=== PATIENT | male | born 1940 | race Caucasian/White ===

== ENCOUNTER 2018-03-05 11:18 | Outpatient (CLI) | payer MEDICARE, OTHER ==
[2018-03-05 18:50] LABS: BASOPHILS % (AUTO) 0.4 %; EOSINOPHILS # (AUTO) 0.1 10^3/uL (0.0-0.7); EOSINOPHILS % (AUTO) 1.9 %; HGB - HEMOGLOBIN 13.9 g/dL (14.0-18.0); LYMPHOCYTES # (AUTO) 0.9 10^3/uL (1.5-3.5); LYMPHOCYTES % (AUTO) 20.6 %; MEAN CORPUSCULAR HEMOGLOBIN 29.7 pg (27.0-31.0); MEAN CORPUSCULAR HGB CONC 33.1 g/dL (32.0-36.0); MEAN CORPUSCULAR VOLUME 89.9 fL (80.0-94.0); MEAN PLATELET VOLUME 8.8 fL (7.4-11.4); MONOCYTES # (AUTO) 0.3 10^3/uL (0.0-1.0); NEUTROPHILS # (AUTO) 3.1 10^3/uL (1.5-6.6); NEUTROPHILS % (AUTO) 71.1 %; PLT - PLATELET COUNT 142 10^3/uL (130-450); RED BLOOD COUNT 4.68 10^6/uL (4.70-6.10); WHITE BLOOD COUNT 4.4 x10^3/uL (4.8-10.8)
[2018-03-05 19:22] LABS: ALBUMIN 4.7 g/dL (3.2-5.5); ALBUMIN/GLOBULIN RATIO 1.9 (1.0-2.2); ALKALINE PHOSPHATASE 39 IU/L (42-121); ALT ALANINE AMINOTRANSFERASE 23 IU/L (10-60); AST ASPARTATE AMINOTRANSFERASE 21 IU/L (10-42); BILIRUBIN,TOTAL 0.7 mg/dL (0.2-1.0); BUN - BLOOD UREA NITROGEN 18 mg/dL (6-20); CALCIUM 8.7 mg/dL (8.5-10.3); CARBON DIOXIDE - CO2 24 mmol/L (21-32); CHLORIDE 106 mmol/L (101-111); CHOL/HDL RATIO 6.4 (<5.0); CHOLESTEROL 249 mg/dL; CREATININE 1.1 mg/dL (0.6-1.2); GFR - MDRD 65 (>89); GLUCOSE 86 mg/dL (70-100); HDL CHOLESTEROL 39 mg/dL; LDL CHOLESTEROL,CALCULATED 173 mg/dL; LDL/HDL RATIO 4.4 (<3.6); SODIUM 137 mmol/L (135-145); TOTAL PROTEIN 7.2 g/dL (6.7-8.2); VLDL CHOLESTEROL 37 mg/dL
[2018-03-05 19:32] LABS: THYROID STIMULATING HORMONE 1.51 uIU/mL (0.34-5.60)
[2018-03-05 19:42] LABS: FOLATE 14.77 ng/mL (5.90 - >24.8)
[2018-03-08 22:48] LABS: METHYLMALONIC ACID 123 nmol/L (87-318)
== END 2018-03-05 11:19 | disposition home or self-care (01) ==
LOC: LAB.WCP 11:18
PROVIDERS: ATTEND Family Medicine
DX: I10 Essential (primary) hypertension (principal); E78.9 Disorder of lipoprotein metabolism, unspecified; Z85.46 Personal history of malignant neoplasm of prostate; R53.83 Other fatigue; F10.10 Alcohol abuse, uncomplicated; R26.89 Other abnormalities of gait and mobility; R41.89 Other symptoms and signs involving cognitive functions and awareness
CPT/HCPCS: 36415; 80053; 80061; 81599; 82607; 82746; 83721; 83921; 84153; 84425; 84443; 85025; 86592

== ENCOUNTER 2018-08-30 07:13 | Outpatient (CLI) | payer MEDICARE, OTHER ==
[2018-08-30 12:34] LABS: ALBUMIN 4.4 g/dL (3.2-5.5); ALBUMIN/GLOBULIN RATIO 1.8 (1.0-2.2); ALKALINE PHOSPHATASE 40 IU/L (42-121); ALT ALANINE AMINOTRANSFERASE 25 IU/L (10-60); AST ASPARTATE AMINOTRANSFERASE 21 IU/L (10-42); BILIRUBIN,TOTAL 0.6 mg/dL (0.2-1.0); BUN - BLOOD UREA NITROGEN 17 mg/dL (6-20); CALCIUM 8.8 mg/dL (8.5-10.3); CARBON DIOXIDE - CO2 29 mmol/L (21-32); CHLORIDE 104 mmol/L (101-111); CHOL/HDL RATIO 3.2 (<5.0); CHOLESTEROL 142 mg/dL; CREATININE 1.1 mg/dL (0.6-1.2); GFR - MDRD 65 (>89); GLUCOSE 97 mg/dL (70-100); HDL CHOLESTEROL 44 mg/dL; LDL CHOLESTEROL,CALCULATED 71 mg/dL; LDL/HDL RATIO 1.6 (<3.6); SODIUM 139 mmol/L (135-145); TOTAL PROTEIN 6.9 g/dL (6.7-8.2); VLDL CHOLESTEROL 27 mg/dL
== END 2018-08-30 07:14 | disposition home or self-care (01) ==
LOC: LAB.WCP 07:13
PROVIDERS: ATTEND Family Medicine
DX: E78.5 Hyperlipidemia, unspecified (principal)
CPT/HCPCS: 36415; 80053; 80061; 83721

== ENCOUNTER 2018-09-26 12:02 | Emergency (ER) | payer MEDICARE, OTHER ==
--- NOTE | 2018-09-26 13:09 | XRAY Report ---
Reason: fall/pain swelling/bruising Procedure Date: 09/26/2018 Accession Number: [id number] / [id number] Procedure: XR - Hand 3 View RT CPT Code: FULL RESULT: EXAM: RIGHT HAND RADIOGRAPHY EXAM DATE: 09/26/2018 12:50 PM. CLINICAL HISTORY: Fall/pain swelling/bruising. COMPARISON: None. TECHNIQUE: 3 views. FINDINGS: Bones: Acute oblique fracture through the mid to distal shaft of the right fifth metacarpal with mild impaction and dorsal displacement. No other fracture or focal bone lesion is identified. Joints: There is mild joint space narrowing at the first interphalangeal and second through fifth distal and proximal interphalangeal joints consistent with osteoarthritis. Moderate osteoarthritis of the first carpometacarpal joint and the radiocarpal joint. Soft Tissues: Mild soft tissue swelling over the hypo-thenar eminence. IMPRESSION: 1. Oblique fracture through the mid to distal shaft of the right fifth metacarpal with mild impaction and dorsal displacement. 2. Mild to moderate polyarticular osteoarthritis. RADIA
--- NOTE | 2018-09-26 13:33 | ED Physician Documentation ---
PD HPI UPPER EXT INJURY - Stated complaint Stated Complaint: GLF/RT HAND INJ - Chief complaint Chief Complaint: Ext Problem - History obtained from History obtained from: Patient - History of Present Illness Location: Right, Hand Type of injury: Fall (he says he slipped and fell, bracing fall with hands, and struck right hand on dresser, with pain at ulnar side.) Where injury occurred: Home Timing - onset: Last night Timing - details: Abrupt onset, Still present Improved by: Rest Worsened by: Moving, Palpating Associated symptoms: Swelling, Discolored (bruising). No: Weakness, Numbness Contributing factors: No: Anticoagulated Similar symptoms before: Has not had sx before Recently seen: Not recently seen Review of Systems Musculoskeletal: denies: Neck pain, Back pain Neurologic: denies: Focal weakness, Numbness, Headache, Head injury PD PAST MEDICAL HISTORY - Past Medical History Cardiovascular: Hypertension Respiratory: None Endocrine/Autoimmune: None GI: GERD, Ulcers, Colon polyps HEENT: None Psych: Depression, Anxiety Musculoskeletal: None Derm: None - Past Surgical History Past Surgical History: Yes General: Colonoscopy Ortho: Other HEENT: Tonsil/Adenoidectomy - Present Medications Home Medications: Ambulatory Orders Medication Instructions Recorded Confirmed Bupropion HCl [Wellbutrin Sr] 150 mg PO BID 11/07/13 04/27/14 Lisinopril 10 mg PO DAILY 11/07/13 04/27/14 Sertraline HCl [Zoloft] 200 mg PO DAILY 11/07/13 04/27/14 - Allergies Allergies/Adverse Reactions: Allergies Allergy/AdvReac Type Severity Reaction Status Date / Time No Known Drug Allergies Allergy Verified 09/26/18 12:25 - Social History Does the pt smoke?: No Smoking Status: Never smoker Does the pt drink ETOH?: Yes Does the pt have substance abuse?: No - Immunizations Immunizations are current?: No PD ED PE NORMAL - Vitals Vital signs reviewed: Yes - General General: Alert and oriented X 3, No acute distress, Well developed/nourished - Derm Derm: Normal color, Warm and dry - Extremities Extremities: Other (right hand with bruising/swelling and tenderness over 5th MC area. Able to flex and extend little finger without malrotation, but causes hand pain. ) - Neuro Neuro: Alert and oriented X 3, No motor deficit, No sensory deficit Results - Vitals Vitals: Vital Signs - 24 hr 09/26/18 09/26/18 12:23 14:34 Temperature 36.3 C L Heart Rate 77 77 Respiratory 14 16 Rate Blood Pressure 121/64 120/62 O2 Saturation 98 98 Oxygen O2 Source Room air - Rads (name of study) right hand Radiology: Prelim report reviewed (oblique 5th MC shaft fracture, nonangulated. ), EMP read contemporaneously Procedures - Splint (location) right hand Splint applied by: Tech Type of splint: Fiberglass, Ulnar gutter Other: Patient tolerated well, No complications, Neurovascular intact, Sling provided PD MEDICAL DECISION MAKING - ED course Complexity details: reviewed results, considered differential, d/w patient Departure - Departure Disposition: 01 Home, Self Care Clinical Impression: Accidental fall Qualifiers: Encounter type: initial encounter Qualified Code(s): W19.XXXA - Unspecified fall, initial encounter Fracture of fifth metacarpal bone of right hand Qualifiers: Encounter type: initial encounter Fracture type: closed Metacarpal location: shaft Fracture alignment: nondisplaced Qualified Code(s): S62.356A - Nond isplaced fracture of shaft of fifth metacarpal bone, right hand, initial encounter for closed fracture Condition: Stable Record reviewed to determine appropriate education?: Yes Instructions: ED Fx Hand Closed Follow-Up: Zahra King DO [Primary Care Provider] - [facility] [Provider [facility]] Comments: Keep the splint on to protect the broken hand. He will need to be splinted for 4-6 weeks. Follow-up with orthopedics in about a week for retaining the splint as it will likely be poorly fitting once the swelling goes down. Rest ice and elevate it often. Use the sling when up and around for the next several days to reduce swelling. Continue the ibuprofen for pain. Add Tylenol if needed. Discharge Date/Time: 09/26/18 14:34
[2018-09-26 14:36] VITALS: BP 120/62
== END 2018-09-26 14:34 | disposition home or self-care (01) ==
LOC: ED 12:02
DX: S62.356A Nondisplaced fracture of shaft of fifth metacarpal bone, right hand, initial encounter for closed fracture (principal); W01.0XXA Fall on same level from slipping, tripping and stumbling without subsequent striking against object, initial encounter; Y92.009 Unspecified place in unspecified non-institutional (private) residence as the place of occurrence of the external cause
CPT/HCPCS: 29125; 99283

== ENCOUNTER 2018-10-02 05:56 | Emergency (ER) | payer MEDICARE, OTHER ==
[2018-10-02 06:05] VITALS: BP 120/69
--- NOTE | 2018-10-02 06:10 | ED Physician Documentation ---
History of Present Illness - Stated complaint Stated Complaint: R ARM PX - Chief complaint Chief Complaint: Ext Problem - History obtained from History obtained from: Patient - History of Present Illness Timing: Today - Additonal information Additional information: T+R 09/26 for right hand fracture (5th metacarpal). this morning, the declan wrap came undone and he wasn't sure how to address this. Review of Systems Musculoskeletal: reports: Extremity pain (has been steadily improving since injury), Extremity swelling (has been steadily improving since injury) PD PAST MEDICAL HISTORY - Past Medical History Past Medical History: Yes Cardiovascular: Hypertension Respiratory: None Neuro: None Endocrine/Autoimmune: None GI: GERD, Ulcers, Colon polyps HEENT: None Psych: Depression, Anxiety Musculoskeletal: None Derm: None - Past Surgical History Past Surgical History: Yes General: Colonoscopy Ortho: Other HEENT: Tonsil/Adenoidectomy - Present Medications Home Medications: Ambulatory Orders Medication Instructions Recorded Confirmed Bupropion HCl [Wellbutrin Sr] 150 mg PO BID 11/07/13 04/27/14 Lisinopril 10 mg PO DAILY 11/07/13 04/27/14 Sertraline HCl [Zoloft] 200 mg PO DAILY 11/07/13 04/27/14 - Allergies Allergies/Adverse Reactions: Allergies Allergy/AdvReac Type Severity Reaction Status Date / Time No Known Drug Allergies Allergy Verified 10/02/18 06:05 - Social History Does the pt smoke?: No Smoking Status: Never smoker Does the pt drink ETOH?: Yes Does the pt have substance abuse?: No - Immunizations Immunizations are current?: No - POLST Patient has POLST: No PD ED PE NORMAL - Vitals Vital signs reviewed: Yes - General General: Alert and oriented X 3, No acute distress, Well developed/nourished - Neuro Neuro: No sensory deficit (LTS intact right hand (fingertips)) PD ED PE EXPANDED - Extremities Extremities: Swelling (right hand/fingers), Bruising (right hand, lateral aspect), Vascular intact (brisk capillary refill right fingertips), Other (splint in place right FA/wrist/hand despite loose declan wrap) Results - Vitals Vitals: Vital Signs - 24 hr 10/02/18 06:03 Temperature 35.8 C L Heart Rate 63 Respiratory 17 Rate Blood Pressure 120/69 O2 Saturation 96 Oxygen O2 Source Room air PD MEDICAL DECISION MAKING - ED course Complexity details: considered differential, d/w patient ED course: patient did not know how to address the loose declan wrap; he says he didn't even realize it was an declan wrap and was worried it was part of the splint. RN rewrapped the splint with the declan wrap. patient has no other c/o and has f/u arranged with PMD early this coming week. Departure - Departure Disposition: 01 Home, Self Care Clinical Impression: Fracture of fifth metacarpal bone of right hand Qualifiers: Encounter type: subsequent encounter Fracture type: closed Metacarpal location: base Fracture alignment: nondisplaced Fracture healing: with routine healing Qualified Code(s): S62.346D - Nondisplaced fracture of base of fifth metacarpal bone, right hand, subsequent encounter for fracture with routine healing Condition: Good Instructions: ED Bandage Elastic Wrap, ED Splint Care Fiberglass Discharge Date/Time: 10/02/18 06:18
== END 2018-10-02 06:18 | disposition home or self-care (01) ==
LOC: ED 05:56
DX: S62.346D Nondisplaced fracture of base of fifth metacarpal bone, right hand, subsequent encounter for fracture with routine healing (principal); X58.XXXD Exposure to other specified factors, subsequent encounter; I10 Essential (primary) hypertension
CPT/HCPCS: 99282

== ENCOUNTER 2018-10-21 11:08 | Outpatient (CLI) | payer MEDICARE, OTHER ==
--- NOTE | 2018-10-21 14:02 | XRAY Report ---
Reason: NONDISPLACED FRACTURE OF NECK OF FIFTH METACARPAL BONE, RIGHTHAND Procedure Date: 10/21/2018 Accession Number: [id number] / [id number] Procedure: XR - Hand 3 View RT CPT Code: FULL RESULT: EXAM: RIGHT HAND RADIOGRAPHY EXAM DATE: 10/21/2018 11:41 AM. CLINICAL HISTORY: Nondisplaced fracture of neck of fifth metacarpal bone, right hand. COMPARISON: HAND 3 VIEW RT 09/26/2018 12:44 PM. TECHNIQUE: 3 views. FINDINGS: Bones: The fifth metacarpal fracture is again seen and without bony callus formation or osseous bridging, not as yet healed. Alignment is similar to prior. Joints: Advanced degenerative changes of the first carpometacarpal joint and joint space narrowing in the interphalangeal joints, distribution suggestive of osteoarthrosis. Soft Tissues: Normal. No soft tissue swelling. IMPRESSION: Persistent fracture of the fifth metacarpal without osseous bridging as yet. RADIA
== END 2018-10-21 11:09 | disposition home or self-care (01) ==
LOC: DI 11:08
PROVIDERS: ATTEND Family Medicine
DX: S62.366S Nondisplaced fracture of neck of fifth metacarpal bone, right hand, sequela (principal)

== ENCOUNTER 2019-05-02 11:29 | Outpatient (CLI) | payer MEDICARE, OTHER ==
--- NOTE | 2019-05-02 12:11 | XRAY Report ---
Reason: LOW BACK PAIN,ACUTE Procedure Date: 05/02/2019 Accession Number: [id number] / [id number] Procedure: WCP - Lumbar Spine 2 View CPT Code: FULL RESULT: EXAM: LUMBOSACRAL SPINE RADIOGRAPHY EXAM DATE: 05/02/2019 11:43 AM. CLINICAL HISTORY: Low back pain, acute. COMPARISONS: None. TECHNIQUE: 2 views. FINDINGS: Alignment: Normal. No spondylolisthesis or scoliosis. Bones: Five sph-rzn-[id number] lumbar vertebral bodies are present. No fractures or bone lesions. Disks: Disk space heights are mostly preserved except at L1-L2 where there is mild marginal osteophytosis and moderate loss of height. Facets: There is mild facet arthropathy, mostly of the lower lumbar spine. Grading is limited by motion artifact on the lateral view. Sacroiliac Joints: Unremarkable. Soft Tissues: The aorta is partially calcified. IMPRESSION: Overall mild degenerative changes. RADIA
== END 2019-05-02 11:30 | disposition home or self-care (01) ==
LOC: DI.WCP 11:29
PROVIDERS: ATTEND Family Medicine
DX: M51.36 Other intervertebral disc degeneration, lumbar region (principal); M47.816 Spondylosis without myelopathy or radiculopathy, lumbar region; M16.11 Unilateral primary osteoarthritis, right hip
CPT/HCPCS: 72100

== ENCOUNTER 2019-05-02 11:30 | Outpatient (CLI) | payer MEDICARE, OTHER ==
--- NOTE | 2019-05-02 12:11 | XRAY Report ---
Reason: HIP PAIN,RIGHT Procedure Date: 05/02/2019 Accession Number: [id number] / [id number] Procedure: WCP - Hip w/Pelvis 2-3V RT CPT Code: FULL RESULT: EXAM: RIGHT HIP RADIOGRAPHY EXAM DATE: 05/02/2019 11:43 AM. CLINICAL HISTORY: Hip pain, right. COMPARISON: None. TECHNIQUE: 2 views. FINDINGS: Bones: No fracture is detected. Joints: The right hip demonstrates joint space loss with subchondral sclerosis and osteophyte formation. Similar but more pronounced changes are seen in the visualized left hip. No dislocation. Soft Tissues: Surgical clips as well as what is likely a surgical mesh is seen projecting over the pelvis. IMPRESSION: Degenerative changes. RADIA
== END 2019-05-02 11:31 | disposition home or self-care (01) ==
LOC: DI.WCP 11:30
PROVIDERS: ATTEND Family Medicine
DX: M16.11 Unilateral primary osteoarthritis, right hip (principal)

== ENCOUNTER 2019-06-29 23:29 | Outpatient (CLI) | payer MEDICARE, OTHER | END 2019-06-29 23:30 | disposition critical access hospital (66) | LOC: EMS 23:29 | PROVIDERS: ATTEND Surgery | DX: M79.605 Pain in left leg (principal); W01.0XXA Fall on same level from slipping, tripping and stumbling without subsequent striking against object, initial encounter; Y92.007 Garden or yard of unspecified non-institutional (private) residence as the place of occurrence of the external cause | CPT/HCPCS: A0425; A0429 ==

== ENCOUNTER 2019-06-29 23:47 | Observation (INO) | payer MEDICARE, OTHER ==
[2019-06-30] MEDS ORDERED: oxyCODONE 5 MG TABLET PO STA (00:13)
[2019-06-30] MEDS ORDERED: ACETAMINOPHEN 325 MG TABLET PO STA (00:13)
--- NOTE | 2019-06-30 00:14 | ED Physician Documentation ---
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 He was outside today and his dog ran into him, causing him to fall backwards and landed on grass. He had immediate pain just inferior to his left knee associate with some swelling. He was unable to bear weight so he called EMS who brought him here by ambulance. He denies history of issues with this knee in the past. He did not hit his head or neck, did not lose consciousness, denies pain or trauma elsewhere. Review of Systems Constitutional: denies: Fever Cardiac: denies: Chest pain / pressure Respiratory: denies: Dyspnea GI: denies: Abdominal Pain Skin: reports: Other (+ for bruising over left knee) Musculoskeletal: reports: Joint pain PD PAST MEDICAL HISTORY - Past Medical History Past Medical History: Yes Cardiovascular: Hypertension Respiratory: None Neuro: None Endocrine/Autoimmune: None GI: GERD, Ulcers, Colon polyps HEENT: None Psych: Depression, Anxiety Musculoskeletal: None Derm: None - Past Surgical History Past Surgical History: Yes General: Colonoscopy Ortho: Other HEENT: Tonsil/Adenoidectomy - Present Medications Home Medications: Ambulatory Orders Medication Instructions Recorded Confirmed Sertraline HCl [Zoloft] 200 mg PO DAILY 11/07/13 06/29/19 - Allergies Allergies/Adverse Reactions: Allergies Allergy/AdvReac Type Severity Reaction Status Date / Time No Known Drug Allergies Allergy Verified 06/29/19 23:50 - Social History Does the pt smoke?: No Smoking Status: Never smoker Does the pt drink ETOH?: No Does the pt have substance abuse?: No - Immunizations Immunizations are current?: No - POLST Patient has POLST: No PD ED PE NORMAL - Vitals Vital signs reviewed: Yes - General General: Alert and oriented X 3, No acute distress - HEENT HEENT: Atraumatic - Cardiac Cardiac: RRR, No murmur - Respiratory Respiratory: No respiratory distress, Clear bilaterally - Abdomen Abdomen: Non tender, Non distended - Derm Derm: Warm and dry - Extremities Extremities: Other (There is edema and ecchymosis over the left inferior lateral aspect of the knee. Patient is unable to bend his knee without severe pain. There is no tenderness of the patella or the distal femur. The lower leg below the level of mid hernandez appears atraumatic and is nontender to palpation. He is able to dorsiflex and plantarflex his ankle, wiggle his toes. Capillary refill is brisk of all digits, and sensation is intact light touch over the entire foot) - Neuro Neuro: Alert and oriented X 3 - Psych Psych: Normal mood, Normal affect Results - Vitals Vitals: Vital Signs - 24 hr 06/29/19 06/30/19 23:47 01:55 Temperature 37.0 C Heart Rate 72 64 Respiratory 14 15 Rate Blood Pressure 120/89 H 123/78 O2 Saturation 97 97 Oxygen O2 Source Room air - Rads (name of study) CT knee Radiology: Prelim report reviewed (Minimally displaced fracture of the left lateral tibial plateau) PD MEDICAL DECISION MAKING - ED course Complexity details: considered differential (Ligamentous injury, fracture, sprain, strain, dislocation, Contusion) ED course: Patient presenting with pain of his left knee after a fall, he is significant tenderness and inability to bear weight on the knee. X-ray was obtained which shows a potential tibial plateau fracture, to better evaluate this is CT was ordered. Patient was given Tylenol as well as oxycodone for pain control. CT revealed a minimally displaced lateral left tibial plateau fracture. After speaking to our orthopedist Dr. Murcia and discussing the case, patient was placed into a knee immobilizer and was given crutches, he is unable to ambulate safely because he already has poor mobility and pain in his right hip. He lives alone and does not have anyone who is able to help him at home. Patient was admitted to observation for physical therapy evaluation, pain control, and safe discharge planning Departure - Departure Disposition: ED Place in Observation Clinical Impression: Tibial plateau fracture, left Qualifiers: Encounter type: initial encounter Fracture type: closed Qualified Code(s): S82.142A - Displaced bicondylar fracture of left tibia, initial encounter for closed fracture Discharge Date/Time: 06/30/19 04:21
--- NOTE | 2019-06-30 00:54 | XRAY Report ---
Reason: left knee pain and swelling after fall Procedure Date: 06/30/2019 Accession Number: [id number] / [id number] Procedure: XR - Knee 3 View LT CPT Code: FULL RESULT: EXAM: LEFT KNEE RADIOGRAPHY EXAM DATE: 06/30/2019 12:31 AM CLINICAL HISTORY: Left knee pain and swelling after a fall. COMPARISON: None. TECHNIQUE: 3 views. FINDINGS: Bones: There is a subtle lucency traversing the lateral portion of the proximal tibia. Joints: There is a small knee effusion. There is mild tricompartmental degenerative joint disease. Soft Tissues: No significant soft tissue swelling. IMPRESSION: Artifact versus a subtle lateral tibial plateau fracture. No significant depression demonstrated. There is a small knee effusion. Further assessment could be considered with a CT of the knee. RADIA
--- NOTE | 2019-06-30 02:25 | CT Report ---
Reason: Knee, possible tibial plateau fracture Procedure Date: 06/30/2019 Accession Number: [id number] / [id number] Procedure: CT - LOWER EXTREMITY WO - LT CPT Code: FULL RESULT: EXAM: LEFT KNEE CT WITHOUT CONTRAST EXAM DATE: 06/30/2019 01:50 AM. CLINICAL HISTORY: Knee, possible tibial plateau fracture. COMPARISON: KNEE 3 VIEW LT 06/30/2019 12:19 AM. TECHNIQUE: Thin-section axial images were acquired of the knee without contrast. Post-processing: Coronal and sagittal reformats. Other: None. In accordance with CT protocol optimization, one or more of the following dose reduction techniques were utilized for this exam: automated exposure control, adjustment of mA and/or KV based on patient size, or use of iterative reconstructive technique. FINDINGS: Bones: Comminuted, minimally displaced lateral tibial plateau fracture, vertically oriented. Tiny avulsion fracture fragment from the medial femoral condyle, possibly associated with a medial collateral ligament injury. Joints: Moderate osteoarthritis. Lipohemarthrosis. Musculature: Normal. No fatty atrophy. Other: Soft tissue swelling. Small left Whatley's cyst. IMPRESSION: Comminuted, minimally displaced lateral tibial plateau fracture. Tiny avulsion fragment from the medial femoral condyle, which may be associated with a medial collateral ligament injury. Lipohemarthrosis and osteoarthritis. RADIA
[2019-06-30] MEDS ORDERED: SODIUM CHLORIDE FLUSH 0.9% 10 ML SYRINGE IVP PRN (03:33)
--- NOTE | 2019-06-30 04:06 | HISTORY & PHYSICAL EXAMINATION ---
Chief Complaint - Chief Complaint Chief Complaint: left knee pain History of Present Illness - Admitted From Admitted From:: [facility] ED - History Obtained From Records Reviewed: yes History obtained from: patient - History of Present Illness HPI Comment/Other: Patient seen and examined on 06/29/19 at 03:45am Patient is a 79 y/o male who presented to the ED via EMS with left knee pain after his dog ran into his knee with significant force, causing him to topple over. He did not hit his head or black out. Work up in the ED included CT of the left knee which showed a tibial plateau fracture. Recommendation was for him to be non-weight bearing on the left leg using crutches. However he has been having problems with his right hip and recently required a steroid injection into the right hip joint. Consequently he is unstable on his feet and unable to ambulate. He denies any other complains. No chest pain, PRAFUL, abd pain, n/v/d, fever or chills. History - Past Medical History Cardiovascular: reports: Hypertension Respiratory: reports: None Neuro: reports: None Endocrine/Autoimmune: reports: None GI: reports: GERD, Ulcers, Colon polyps HEENT: reports: None Psych: reports: Depression, Anxiety Musculoskeletal: reports: None Derm: reports: None MRSA Hx?: No - Past Surgical History General: reports: Colonoscopy Ortho: reports: Other HEENT: reports: Tonsil/Adenoidectomy - Family & Social History Family History Comment/Other: Patient denies any significant family history Living arrangement: At home Living Situation: Alone Social History Notes: Patient lives alone. He denies any alcohol, tobacco or illicit drug use - POLST Patient has POLST: No Meds/Allgy - Home Medications Home Medications: Ambulatory Orders Medication Instructions Recorded Confirmed Sertraline HCl [Zoloft] 200 mg PO DAILY 11/07/13 06/29/19 - Allergies Allergies/Adverse Reactions: Allergies Allergy/AdvReac Type Severity Reaction Status Date / Time No Known Drug Allergies Allergy Verified 06/29/19 23:50 Review of Systems - Constitutional Constitutional: denies: Fatigue, Fever, Chills, Weakness - Eyes Eyes: denies: Blurred vision, Dipolpia - Ears, Nose & Throat Ears, Nose & Throat: reports: Hearing aids. denies: Nasal pain, Nasal discharge, Hoarseness - Cardiovascular Cariovascular: denies: Irregular heart rate, Palpitations, Chest pain, Edema, Lightheadedness, Syncope, Exertional dyspnea - Respiratory Respiratory: denies: Cough, Sputum production, Wheezing, SOB at rest, SOB with exertion - Gastrointestinal Gastrointestinal: denies: Abdominal pain, Abdominal distention, Nausea, Vomiting, Coffee grounds emesis - Genitourinary Genitourinary: denies: Dysuria, Frequency, Urgency, Hematuria - Musculoskeletal Musculoskeletal: reports: Joint pain (right hip and left knee). denies: Muscle pain, Back pain, Muscle aches - Integumentary Integumentary: denies: Rash, Pruritis, Lesions - Neurological Neurological: denies: General weakness, Focal weakness, Headache, Dizziness - Psychiatric Psychiatric: reports: Depression, Anxiety - Endocrine Endocrine: denies: Polyuria, Polydypsia - Hematologic/Lymphatic Hematologic/Lymphatic: denies: Anemia, Bruising, Petechiae Exam - Vital Signs Vital Signs: Vital Signs x48h Temp Pulse Resp BP Pulse Ox 06/30/19 01:55 64 15 123/78 97 06/29/19 23:47 37.0 C 72 14 120/89 H 97 - Physical Exam General Appearance: positive: Alert, Moderate distress Eyes Bilateral: positive: Normal inspection, PERRL, EOMI ENT: positive: ENT inspection nml, No signs of dehydration Neck: positive: Nml inspection, No JVD, Trachea midline Respiratory: positive: Chest non-tender, No respiratory distress. negative: Wheezes, Rales, Rhonchi Cardiovascular: positive: Regular rate & rhythm, No murmur Abdomen: positive: Non-tender, No organomegaly, Nml bowel sounds, No distention. negative: Guarding, Rebound Back: positive: Nml inspection Skin: positive: Color nml, No rash, Warm Extremities: positive: Other (left knee in a brace) Neurologic/Psychiatric: positive: Oriented x3, CN's nml (2-12) Conclusion/Plan - Problem List (1) Tibial plateau fracture, left Conclusion/Plan: Patient unable to bear weight on the right leg to due right hip pain As a result unsteady on leg thus unable to ambulate. PT/OT to evaluate and treat and give recommendations Pain management Qualifiers: Encounter type: initial encounter Fracture type: closed Qualified Code(s): S82.142A - Displaced bicondylar fracture of left tibia, initial encounter for closed fracture (2) Depression Conclusion/Plan: On zoloft Core Measures - Anticipated LOS I expect patient to be DC'd or transferred within 96 hours.: Yes - DVT/VTE - Prophylaxis VTE/DVT Device ordered at admit?: Yes
[2019-06-30] MEDS: ACETAMINOPHEN 325 MG TABLET PO PRN ×3 (04:43→14:10)
[2019-06-30] MEDS: oxyCODONE 5 MG TABLET PO PRN ×3 (04:47→14:09)
[2019-06-30 05:54] LABS: BASOPHILS % (AUTO) 0.2 %; EOSINOPHILS # (AUTO) 0.2 10^3/uL (0.0-0.7); EOSINOPHILS % (AUTO) 3.7 %; LYMPHOCYTES # (AUTO) 1.1 10^3/uL (1.5-3.5); LYMPHOCYTES % (AUTO) 17.9 %; MEAN CORPUSCULAR HEMOGLOBIN 29.4 pg (27.0-31.0); MEAN CORPUSCULAR HGB CONC 32.3 g/dL (32.0-36.0); MEAN CORPUSCULAR VOLUME 91.2 fL (80.0-94.0); MEAN PLATELET VOLUME 10.4 fL (7.4-11.4); MONOCYTES # (AUTO) 0.6 10^3/uL (0.0-1.0); MONOCYTES % (AUTO) 9.5 %; NEUTROPHILS # (AUTO) 4.2 10^3/uL (1.5-6.6); NEUTROPHILS % (AUTO) 68.4 %; PLT - PLATELET COUNT 129 10^3/uL (130-450); RED BLOOD COUNT 4.08 10^6/uL (4.70-6.10); RED CELL DISTRIBUTION WIDTH 12.7 % (12.0-15.0); WHITE BLOOD COUNT 6.2 x10^3/uL (4.8-10.8)
[2019-06-30 05:58] LABS: CALCIUM 8.5 mg/dL (8.5-10.3); CREATININE 0.8 mg/dL (0.6-1.2)
[2019-06-30] MEDS ORDERED: MORPHINE 2 MG/ML CARPUJECT IVP PRN (08:16)
[2019-06-30] MEDS ORDERED: POLYETHYLENE GLYCOL 3350 17 GM PACKET PO SCH (09:00)
[2019-06-30] MEDS ORDERED: SODIUM CHLORIDE FLUSH 0.9% 10 ML SYRINGE IVP SCH (09:00)
[2019-06-30] MEDS ORDERED: SERTRALINE 50 MG TABLET PO SCH (09:00)
[2019-06-30 13:13] VITALS: BP 124/74
--- NOTE | 2019-06-30 13:29 | Discharge Plan ---
Discharge Plan Problem Reviewed?: Yes Disposition: Home, Self Care Condition: Poor Prescriptions: oxyCODONE [Roxicodone] 5 mg PO Q4HR PRN #20 tablet PRN Reason: Pain 5 to 7 Diet: Regular Activity Restrictions: Activity as Tolerated Shower Restrictions: No (fall precaution) Instruction Topics: Oxycodone tablets or capsules, Fx Leg Arm, Falls Risks Prevent Health Concerns: fall, fracture Plan of Treatment: please followup the instructions for fall prevention, and orthopedics instruction for your injury care. please followup orthopedics as needed. oxycodon is prescribed for your pain control. Care Goals: stabilization of your medical conditions Assessment: assessment as the above Additional Instructions or Follow Up instructions: please followup your PCP in one week, and followup orthopedics as needed. Should your symptoms return or worsen, you may present ER, call 911 for help. Follow-Up Care: Outpatient Rehab - PT No Smoking: If you smoke, Please STOP! Call for help. Follow-up with: Zahra King DO [Provider Admit Priv/Credential] -
--- NOTE | 2019-06-30 13:32 | CONSULTATION NOTE ---
DATE OF SERVICE: 06/30/2019 Physician: Carlos Murcia MD REFERRING PHYSICIAN: Ermelinda Woodard MD CHIEF COMPLAINT: "My left knee hurts." HISTORY OF PRESENT ILLNESS: Patient is a 79-year-old male who apparently was knocked down by his 35-pound Whippet dog yesterday, falling backwards and injuring his left knee. He noted some mild swelling as well as pain to the knee. No gross deformity noted. It was too painful to weight bear on this left leg, however. He was taken to the emergency here at [facility], where x-rays and a CT scan revealed a minimally displaced intraarticular lateral tibial plateau fracture. The patient denies any prior fractures to his knee. No distal weakness or numbness noted in the lower extremity. No other injuries noted from his fall. EXAMINATION: Patient's left knee shows minimal swelling and some mild bruising around the knee. No effusion appreciated. Has some generalized tenderness around the knee, posteromedially and anterolaterally. Tenderness over the lateral proximal tibia noted. Knee range of motion showed about 20-30 degrees of easy motion at the knee. Ligaments appear to be stable on testing today. Neurovascularly intact distally. IMAGING: X-rays and CT scan taken previously reviewed; showed intraarticular split of the lateral tibial plateau, minimally depressed or displaced. ASSESSMENT: Closed, minimally depressed or displaced left lateral tibial plateau fracture. PLAN: Patient found that his knee immobilizer was not very helpful. He may replace this with an Sai wrap as tolerated. May work on early range of motion of the knee as tolerated. Will be able to have him see physical therapy for crutch ambulation or walker ambulation, nonweightbearing on the left side for the next 4-6 weeks. Analgesics as needed. Upon discharge from the hospital, he will follow up with the orthopedic clinic in about a week to 10 days for followup x-rays of his knee and a check on his clinical status. TD: 06/30/2019 13:32 [email or web address]
--- NOTE | 2019-06-30 13:41 | DISCHARGE SUMMARY ---
Discharge Summary Discharge Date: 06/30/19 Discharging Provider: NATHAN Primary Care Provider: Brittani Barrera Condition at Discharge: Poor Discharge Disposition: Home Health Service Discharge Facility Name: home - DIAGNOSES Admission Diagnoses: (1) Tibial plateau fracture, left (2) Depression Discharge Diagnoses with Status of Each Condition: (1) Tibial plateau fracture, left stable, followup orthopedics office, home health PT is arranged for him (2) Depression stable - HPI History of Present Illness: refer from 's HPI on 06/30/19 Patient seen and examined on 06/29/19 at 03:45am Patient is a 79 y/o male who presented to the ED via EMS with left knee pain after his dog ran into his knee with significant force, causing him to topple over. He did not hit his head or black out. Work up in the ED included CT of the left knee which showed a tibial plateau fracture. Recommendation was for him to be non-weight bearing on the left leg using crutches. However he has been having problems with his right hip and recently required a steroid injection into the right hip joint. Consequently he is unstable on his feet and unable to ambulate. He denies any other complains. No chest pain, PRAFUL, abd pain, n/v/d, fever or chills. - HOSPITAL COURSE Hospital Course: pt was admitted for fall, which was knocked down by his dog. pt was found to have left tibial plateau fracture. pt was seen by Dr. Murcia, orthopedics, and evaluated and treated by PT. detail hospital course is as the below (1) Tibial plateau fracture, left pt was seen by Dr. Murcia, orthopedics, and evaluated and treated by PT. pt was instructed by Dr. Murcia, non-weight bearing on the left leg for 6 weeks, followup orthopedics office in one to weeks. pt is prescribed pain meds, prescribed walker. home health PT is arranged for pt (2) Depression stable, reconcile home meds - ALLERGIES Allergies/Adverse Reactions: Allergies Allergy/AdvReac Type Severity Reaction Status Date / Time No Known Drug Allergies Allergy Verified 06/29/19 23:50 - MEDICATIONS Home Medications: Ambulatory Orders Medication Instructions Recorded Confirmed Sertraline HCl [Zoloft] 200 mg PO QPM 11/07/13 06/30/19 Latanoprost 0.005% Ophth Drops 1 drops EACHEYE QPM 06/30/19 06/30/19 [Xalatan Ophth Drops] Unidentified Acid Heat Treat Technician 1 cap PO DAILY PRN 06/30/19 oxyCODONE [Roxicodone] 5 mg PO Q4HR PRN #20 tablet 06/30/19 - PHYSICAL EXAM AT DISCHARGE General Appearance: positive: No acute distress, Alert. negative: Lethargic Eyes Bilateral: positive: Normal inspection, PERRL. negative: No lid inflammation, Conjunctivae nml ENT: positive: ENT inspection nml, Pharynx nml, No signs of dehydration. negative: Purulent nasal drainage, Pharyngeal erythema, Oral lesions Neck: positive: Nml inspection, Thyroid nml, No JVD, Trachea midline. negative: Thyromegaly, Lymphadenopathy (R), Lymphadenopathy (L), Stiff neck, Swelling/bruising, Tracheal deviation Respiratory: positive: Chest non-tender, No respiratory distress, Breath sounds nml. negative: Wheezes, Rales, Rhonchi Cardiovascular: positive: Regular rate & rhythm, No murmur, No gallop. negative: Irregularly irregular, Extrasystoles, Tachycardia, Bradycardia, JVD present, Systolic murmur, Diastolic murmur Peripheral Pulses: positive: 2+ Abdomen: positive: Non-tender, No organomegaly, Nml bowel sounds, No distention. negative: Tenderness, Guarding, Rebound Back: positive: Nml inspection. negative: CVA tenderness (R), CVA tenderness (L) Skin: positive: Color nml, No rash, Warm, Dry. negative: Cyanosis, Diaphoresis, Pallor Extremities: negative: Full ROM, Calf tenderness, Joint swelling, Yakov's sign/cords Neurologic/Psychiatric: positive: Oriented x3, Sensation nml, Mood/affect nml. negative: Weakness, Sensory loss, Facial droop, Slurred/abnml speech, Depressed mood/affect - LABS Result Diagrams: 06/30/19 05:35 06/30/19 05:35 - QUALITY (Female Hip Fx Only) Was patient sent home on osteoporosis medication?: No - FOLLOW UP Follow Up: followup PCP and orthopedics office in one to two weeks. - TIME SPENT Time Spent in Discharge (Minutes): 50
== END 2019-06-30 15:15 | disposition home health service (06) ==
LOC: EDUNIT# → ED 23:47 → MS2 06-30 03:33
PROVIDERS: ADMIT Internal Medicine; ATTEND Nurse Practitioner Gerontology
DX: S82.142A Displaced bicondylar fracture of left tibia, initial encounter for closed fracture (principal); W54.1XXA Struck by dog, initial encounter; F32.9 Major depressive disorder, single episode, unspecified; I10 Essential (primary) hypertension; F41.9 Anxiety disorder, unspecified; M25.551 Pain in right hip
CPT/HCPCS: 36415; 73562; 73700; 80048; 85025; 97161; 97530; 99284; 99285; A9270; G0378

== ENCOUNTER 2019-07-16 00:29 | Outpatient (CLI) | payer MEDICARE, OTHER | END 2019-07-16 00:30 | disposition critical access hospital (66) | LOC: EMS 00:29 | PROVIDERS: ATTEND Surgery | DX: M54.9 Dorsalgia, unspecified (principal) | CPT/HCPCS: A0425; A0429 ==

== ENCOUNTER 2019-07-16 00:45 | Inpatient (IN) | payer MEDICARE, OTHER ==
--- NOTE | 2019-07-16 01:52 | XRAY Report ---
Reason: Right rib pain without acute injury Procedure Date: 07/16/2019 Accession Number: [id number] / [id number] Procedure: XR - Ribs w/PA Chest RT CPT Code: FULL RESULT: EXAM: RIGHT RIB RADIOGRAPHY EXAM DATE: 07/16/2019 01:40 AM. CLINICAL HISTORY: Right rib pain without acute injury. COMPARISON: CHEST 2 VIEW PA/LAT 03/06/2017 11:08 AM. TECHNIQUE: 1 view of the chest and 2 views of the ribs. FINDINGS: Bones: Chronic right fifth rib fracture. No acute fracture identified. Lungs: Low lung volumes. Mild interstitial and airspace opacities throughout both lungs. No pleural effusion. No pneumothorax. Mediastinum: Heart and mediastinal contours are unremarkable. Other: None. IMPRESSION: 1. No acute rib fracture identified. 2. Pulmonary findings which may reflect mild pulmonary edema. RADIA
[2019-07-16] MEDS ORDERED: KETOROLAC 30 MG/ML VIAL IVP STA (01:58)
[2019-07-16] MEDS ORDERED: DEXAMETHASONE 10 MG/ML VIAL IVP STA (01:58)
[2019-07-16] MEDS ORDERED: SODIUM CHLORIDE 0.9% 1,000 ML IV ONE (01:58)
--- NOTE | 2019-07-16 01:59 | ED Physician Documentation ---
PD HPI BACK PAIN - Stated complaint Stated Complaint: BACK PAIN - Chief complaint Chief Complaint: Back Pain - History obtained from History obtained from: Patient - History of Present Illness Timing - onset: How many days ago (3) Timing - duration: Days (3) Timing - details: Gradual onset, Still present Location: Upper, Right Quality: Pain, Spasm, Sharp Associated symptoms: No: Fever, Weakness, Numbness, Incontinent of urine, Unable to urinate, Hematuria, Incontinent of stool Improves with: Rest, Position Worsened by: Movement, Palpation, Other (inspiration and at rest with sharp spasms) Contributing factors: Other (has had a fall and tibial plateu fracture 2 weeks ago.) Similar symptoms before: Has not had sx before Recently seen: Emergency Dept, Admitted - Additional information Additional information: 79-year-old male who had a fall 2 weeks ago and has sustained a tibial plateau fracture on the left knee has a bad right hip and he has been using a chair to get around in and he has been doing his own transfers in and out of bed. 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 He has developed a pain in his right upper back and the chest that is worse with inspiration movement and sometimes just severe spasm out of the blue. The spasms are intense and he has been unable to sleep. Review of Systems Constitutional: reports: Fatigue. denies: Fever, Chills, Myalgias Eyes: denies: Decreased vision Ears: denies: Ear pain Nose: denies: Rhinorrhea / runny nose, Congestion Throat: denies: Sore throat Cardiac: reports: Chest pain / pressure. denies: Palpitations, Pedal edema, Calf pain Respiratory: denies: Dyspnea, Cough, Wheezing GI: denies: Abdominal Pain, Nausea, Vomiting, Constipation, Diarrhea : denies: Dysuria, Frequency Skin: denies: Rash Musculoskeletal: reports: Back pain, Extremity pain, Joint pain, Pain with weight bearing. denies: Neck pain Neurologic: reports: Generalized weakness. denies: Focal weakness, Numbness PD PAST MEDICAL HISTORY - Past Medical History Past Medical History: Yes Cardiovascular: Hypertension Respiratory: None Neuro: None Endocrine/Autoimmune: None GI: GERD, Ulcers, Colon polyps : None HEENT: None Psych: Depression, Anxiety Musculoskeletal: None Derm: None - Past Surgical History Past Surgical History: Yes General: Colonoscopy Ortho: Other HEENT: Tonsil/Adenoidectomy - Present Medications Home Medications: Ambulatory Orders Medication Instructions Recorded Confirmed Sertraline HCl [Zoloft] 200 mg PO QPM 11/07/13 06/30/19 Latanoprost 0.005% Ophth Drops 1 drops EACHEYE QPM 06/30/19 06/30/19 [Xalatan Ophth Drops] Unidentified Acid Flavor Extractor 1 cap PO DAILY PRN 06/30/19 oxyCODONE [Roxicodone] 5 mg PO Q4HR PRN #20 tablet 06/30/19 - Allergies Allergies/Adverse Reactions: Allergies Allergy/AdvReac Type Severity Reaction Status Date / Time No Known Drug Allergies Allergy Verified 06/29/19 23:50 - Social History Does the pt smoke?: No Smoking Status: Never smoker Does the pt drink ETOH?: No Does the pt have substance abuse?: No - Immunizations Immunizations are current?: No - POLST Patient has POLST: No PD ED PE NORMAL - Vitals Vital signs reviewed: Yes (room air hypoxia) - General General: Alert and oriented X 3, Well developed/nourished, Other (Face of pain with sailing instructor tone and flattened affect and occasional winces in severe pain.) - HEENT HEENT: Atraumatic, PERRL, EOMI - Neck Neck: Supple, no meningeal sign, No bony TTP - Cardiac Cardiac: RRR, No murmur - Respiratory Respiratory: No respiratory distress, Clear bilaterally, Other (markedly diminished breath sounds bilaterally with point tenderness to the chest wall posteriorly on the right at the 6 th rib level. No rash. ) - Abdomen Abdomen: Soft, Non tender - Back Back: No CVA TTP, No spinal TTP - Derm Derm: Normal color, Warm and dry, No rash - Extremities Extremities: No deformity, No edema - Neuro Neuro: Alert and oriented X 3, data systems analyst 2-12 intact, No motor deficit, No sensory deficit, Normal speech Eye Opening: Spontaneous Motor: Obeys Commands Verbal: Oriented GCS Score: 15 - Psych Psych: Other (mood is painful and the affect is flat ) Results - Vitals Vitals: Vital Signs - 24 hr 07/16/19 07/16/19 07/16/19 00:46 01:48 02:42 Temperature 36.7 C Heart Rate 80 81 73 Respiratory 16 16 18 Rate Blood Pressure 128/71 129/78 120/51 L O2 Saturation 92 91 L 95 07/16/19 04:11 Temperature Heart Rate 73 Respiratory 14 Rate Blood Pressure 111/58 L O2 Saturation 93 Oxygen O2 Source Nasal cannula - Labs Labs: Laboratory Tests 07/16/19 07/16/19 07/16/19 02:05 02:05 02:05 WBC 9.3 RBC 4.00 L Hgb 12.1 L Hct 36.1 L MCV 90.3 MCH 30.3 MCHC 33.5 RDW 12.2 Plt Count 210 MPV 10.2 Neut # (Auto) 7.5 H Lymph # (Auto) 0.8 L Bleckley # (Auto) 0.8 Eos # (Auto) 0.0 Baso # (Auto) 0.0 Absolute Nucleated RBC 0.00 Nucleated RBC % 0.0 D-Dimer 477.8 H Sodium 139 Potassium 4.0 Chloride 102 Carbon Dioxide 27 Anion Gap 10.0 BUN 23 H Creatinine 0.9 Estimated GFR (MDRD) 82 L Glucose 127 H Calcium 9.0 Total Bilirubin 0.7 AST 13 ALT 13 Alkaline Phosphatase 48 B-Natriuretic Peptide Total Protein 7.2 Albumin 4.0 Globulin 3.2 Albumin/Globulin Ratio 1.3 Lipase 30 07/16/19 02:05 WBC RBC Hgb Hct MCV MCH MCHC RDW Plt Count MPV Neut # (Auto) Lymph # (Auto) Bleckley # (Auto) Eos # (Auto) Baso # (Auto) Absolute Nucleated RBC Nucleated RBC % D-Dimer Sodium Potassium Chloride Carbon Dioxide Anion Gap BUN Creatinine Estimated GFR (MDRD) Glucose Calcium Total Bilirubin AST ALT Alkaline Phosphatase B-Natriuretic Peptide 30 Total Protein Albumin Globulin Albumin/Globulin Ratio Lipase - Rads (name of study) ribs w/pa chest Radiology: Prelim report reviewed (Impression: 1. No acute rib fracture identified. Pulmonary findings may reflect mild pulmonary edema.), EMP read indepedently, See rad report CT angio chest PE Radiology: Prelim report reviewed (Impression: 1. Segmental pulmonary emboli in the right upper lobe and right lower lobe. No large central emboli are seen. 2 Small lung volumes with probable pulmonary vascular congestion and interstitial edema. 3 Bibasilar atelectasis or infiltrate and small right pleural effusion. 4 Mild cardiomegaly with coronary artery calcifications. 5 Posterior right lobe liver lesion measuring 3.5 x 3.4 cm, indeterminate for solid mass versus fluid collection. 6. Probable splenomegaly.), Discussed with rads, EMP read indepedently, See rad report Procedures - IVC sono (time) 0150 Bedside IVC sono: IVC measures (cm) (0.92), IVC collapsed c insp (cm) (complete), Dehydration (est 1-2 liter deficit) PD MEDICAL DECISION MAKING - ED course Complexity details: reviewed old records, reviewed results, re-evaluated patient, considered differential, d/w patient ED course: Previously well 79-year-old male with a history of a recent fall and fracture of his left tibial plateau laterally presents today with pleuritic chest pain that is severe in nature and limiting his ability to expand his lungs. On evaluation he is found to have segmental pulmonary emboli and possible pulmonary infarct. He is breathing very shallow and has atelectasis on exam as well as a pleural effusion. He does have incidental finding of a mass in his liver which will need further evaluation. He is treated initially on arrival to the emergency department with 10 mg of dexamethasone and 30 mg of Toradol intravenously and he has no significant improvement with this and is administered Dilaudid 1 mg and Zofran 4 mg intravenously which does improve the patient's pain. He is able to comfortably breathe but continues to have pain with each breath. On arrival to the emergency department the patient was found to have vascular vo lume depletion and he was administered saline as well. His chest x-ray and CT are read as potential for pulmonary edema however he is BNP is 30 and his inferior vena cava is small and collapsing consistent with dehydration. He is clinically not in failure. He is hypoxic on room air with a room air sat of 91% and this corrects up to 94 with 2 L nasal cannula. Departure - Departure Disposition: [facility] DC/Xfer Clinical Impression: Pulmonary embolism and infarction, Atelectasis of both lungs, Hypoxia Condition: Serious
[2019-07-16] MEDS ORDERED: HYDROmorphone 1 MG/ML CARPUJECT IVP STA (03:04)
[2019-07-16] MEDS ORDERED: ONDANSETRON 4 MG/2 ML VIAL IVP STA (03:04)
[2019-07-16 03:12] LABS: BASOPHILS % (AUTO) 0.2 %; EOSINOPHILS % (AUTO) 0.4 %; HGB - HEMOGLOBIN 12.1 g/dL (14.0-18.0); LYMPHOCYTES # (AUTO) 0.8 10^3/uL (1.5-3.5); MEAN CORPUSCULAR HEMOGLOBIN 30.3 pg (27.0-31.0); MEAN CORPUSCULAR HGB CONC 33.5 g/dL (32.0-36.0); MEAN CORPUSCULAR VOLUME 90.3 fL (80.0-94.0); MEAN PLATELET VOLUME 10.2 fL (7.4-11.4); MONOCYTES # (AUTO) 0.8 10^3/uL (0.0-1.0); MONOCYTES % (AUTO) 8.9 %; NEUTROPHILS # (AUTO) 7.5 10^3/uL (1.5-6.6); NEUTROPHILS % (AUTO) 81.2 %; PLT - PLATELET COUNT 210 10^3/uL (130-450); RED CELL DISTRIBUTION WIDTH 12.2 % (12.0-15.0); WHITE BLOOD COUNT 9.3 x10^3/uL (4.8-10.8)
[2019-07-16 03:22] LABS: ALBUMIN/GLOBULIN RATIO 1.3 (1.0-2.2); BILIRUBIN,TOTAL 0.7 mg/dL (0.2-1.0); CREATININE 0.9 mg/dL (0.6-1.2); TOTAL PROTEIN 7.2 g/dL (6.7-8.2)
[2019-07-16] MEDS ORDERED: IOVERSOL 320 100 ML VIAL IVP ONE ×2 (03:57→04:17)
--- NOTE | 2019-07-16 04:39 | CT Report ---
Reason: PE study Procedure Date: 07/16/2019 Accession Number: [id number] / [id number] Procedure: CT - ANGIO CHEST W/WO CPT Code: FULL RESULT: EXAM: CT ANGIOGRAM CHEST EXAM DATE: 07/16/2019 04:13 AM. CLINICAL HISTORY: Shortness of breath. Right upper back pain. COMPARISON: None. TECHNIQUE: Routine helical imaging was performed through the chest in the pulmonary arterial phase. IV Contrast: OPTI 320 80ML. Reconstructions: Coronal 3-D MIP reconstructions.Sagittal and coronal. In accordance with CT protocol optimization, one or more of the following dose reduction techniques were utilized for this exam: automated exposure control, adjustment of mA and/or KV based on patient size, or use of iterative reconstructive technique. FINDINGS: Pulmonary Arteries: Diagnostic quality: Adequate through the segmental arteries. Segmental embolism is seen in the right upper lobe. Segmental embolism also seen in the right lower lobe. No large pulmonary emboli are seen. No evidence of right heart strain. Lungs/Pleura: Small lung volumes. Probable pulmonary vascular congestion and interstitial edema. Bibasilar atelectasis or infiltrate, right greater than left. Small right pleural effusion. No pneumothorax. Mediastinum: Mild cardiomegaly. Coronary artery calcifications. Normal sized mediastinal lymph nodes. Thoracic Aorta: Mild to moderate atherosclerosis. No aneurysm or dissection. Upper Abdomen: Posterior right lobe liver lesion measuring 3.5 x 3.4 cm, series 4 image 96. This could represent mass or fluid collection. Spleen is not completely imaged but splenomegaly is suspected. Gallbladder also is not completely imaged and gallbladder abnormality is not excluded. Other: Degenerative changes in the spine. Incomplete segmentation in the mid thoracic spine. IMPRESSION: 1. Segmental pulmonary emboli in the right upper lobe and right lower lobe. No large central emboli are seen. 2. Small lung volumes with probable pulmonary vascular congestion and interstitial edema. 3. Bibasilar atelectasis or infiltrate and small right pleural effusion. 4. Mild cardiomegaly with coronary artery calcifications. 5. Posterior right lobe liver lesion measuring 3.5 x 3.4 cm, indeterminate for solid mass versus fluid collection. 6. Probable splenomegaly. RADIA The above critical result findings were discussed with Galileo Ashford by Dr. Scott Maharaj at 04:32 AM on 07/16/2019.
[2019-07-16] MEDS ORDERED: SODIUM CHLORIDE FLUSH 0.9% 10 ML SYRINGE IVP PRN (05:55)
[2019-07-16] MEDS ORDERED: HYDROmorphone 1 MG/ML CARPUJECT IVP PRN (05:55)
--- NOTE | 2019-07-16 06:48 | HISTORY & PHYSICAL EXAMINATION ---
Chief Complaint - Chief Complaint Chief Complaint: right-sided thoracic pain History of Present Illness - Admitted From Admitted From:: [facility] ED - History Obtained From Records Reviewed: yes History obtained from: patient - History of Present Illness HPI Comment/Other: Patient seen and examined on 07/16/19 at 0600am. Patient is a 79 y/o male who presented to the ED with complain of right-sided thoracic pain which has been going on for 2 days. It is worse with inspiration and as a result he is reluctant to take in deep breaths. He finally came in because the pain was unbearable. He was mildly hypoxic in the ED, warranting 2L of Oxygen via nasal canula for an O2Sat above 90%. He usually does not wear oxygen at home. He was recently admitted to the hospital with a tibial plateau fracture. He still has a wrap around the knee and has a four-wheeled walker to get around with. He denies any recent fall or any significant pain in the knee. He denies substernal chest pain, abd pain, fever or chills. He was nauseous but denied vomiting. Work up in the ED include CT for PE which showed segmental PE's. There was also an incidental finding of a liver mass. In light of his hypoxia, pain and reluctance/difficulty taking deep breaths, he is being admitted for further treatment. History - Past Medical History Cardiovascular: reports: Hypertension Respiratory: reports: None Neuro: reports: None Endocrine/Autoimmune: reports: None GI: reports: GERD, Ulcers, Colon polyps : reports: None HEENT: reports: None Psych: reports: Depression, Anxiety Musculoskeletal: reports: None Derm: reports: None MRSA Hx?: No - Past Surgical History General: reports: Colonoscopy Ortho: reports: Other HEENT: reports: Tonsil/Adenoidectomy - Family & Social History Family History Comment/Other: Patient denies any significant family history Social History Notes: Patient lives alone. He denies any alcohol, tobacco or illicit drug use - POLST Patient has POLST: No Meds/Allgy - Home Medications Home Medications: Ambulatory Orders Medication Instructions Recorded Confirmed Sertraline HCl [Zoloft] 200 mg PO QPM 11/07/13 06/30/19 Latanoprost 0.005% Ophth Drops 1 drops EACHEYE QPM 06/30/19 06/30/19 [Xalatan Ophth Drops] Atorvastatin Calcium 20 mg PO QPM 07/16/19 07/16/19 Bupropion HCl [Bupropion Xl] 07/16/19 Fluticasone [Flonase] 07/16/19 Gabapentin 100 mg PO BID 07/16/19 07/16/19 Ibuprofen [Motrin] 400 mg PO TIDWM 07/16/19 07/16/19 Loratadine [Claritin] 10 mg PO DAILY PRN 07/16/19 - Allergies Allergies/Adverse Reactions: Allergies Allergy/AdvReac Type Severity Reaction Status Date / Time No Known Drug Allergies Allergy Verified 06/29/19 23:50 Review of Systems - Constitutional Constitutional: denies: Fever, Chills, Weakness, Poor appetite - Eyes Eyes: denies: Amaurosis, Blurred vision, Vision loss, Dipolpia - Ears, Nose & Throat Ears, Nose & Throat: denies: Tinnitus, Vertigo, Nasal pain, Hoarseness - Cardiovascular Cariovascular: denies: Irregular heart rate, Palpitations, Edema, Syncope, Decr. exercise tolerance - Respiratory Respiratory: reports: SOB at rest, Pleuritic pain. denies: Wheezing, Snoring - Gastrointestinal Gastrointestinal: reports: Nausea. denies: Abdominal pain, Abdominal distention, Constipation, Diarrhea, Vomiting, Coffee grounds emesis - Genitourinary Genitourinary: denies: Dysuria, Frequency, Urgency - Musculoskeletal Musculoskeletal: reports: Other (right sided thoracic pain). denies: Muscle pain, Back pain - Integumentary Integumentary: denies: Rash, Pruritis, Dryness - Neurological Neurological: denies: General weakness, Focal weakness, Headache, Dizziness, Numbness - Psychiatric Psychiatric: denies: Depression, Anxiety - Endocrine Endocrine: denies: Polyuria, Polydypsia - Hematologic/Lymphatic Hematologic/Lymphatic: denies: Anemia, Bruising Prior Level of Functionality: Independent of activities of daily living Exam - Vital Signs Vital Signs: Vital Signs x48h Temp Pulse Resp BP Pulse Ox 07/16/19 06:03 72 14 117/59 L 95 07/16/19 05:12 92 07/16/19 05:11 73 88 L 07/16/19 04:11 73 14 111/58 L 93 07/16/19 02:42 73 18 120/51 L 95 07/16/19 01:48 81 16 129/78 91 L 07/16/19 00:46 36.7 C 80 16 128/71 92 - Physical Exam General Appearance: positive: Alert, Moderate distress, Severe distress Eyes Bilateral: positive: Normal inspection, PERRL, EOMI ENT: positive: ENT inspection nml, No signs of dehydration Neck: positive: Nml inspection, No JVD, Trachea midline Respiratory: positive: Rales, Other (Pain with deep inspiration). negative: Wheezes, Rhonchi Cardiovascular: positive: Regular rate & rhythm Abdomen: positive: Non-tender, No organomegaly, Nml bowel sounds, No distention. negative: Guarding, Rebound Back: positive: Nml inspection Skin: positive: Color nml, No rash, Dry Extremities: positive: Non-tender, Nml appearance, No pedal edema Neurologic/Psychiatric: positive: Oriented x3, CN's nml (2-12), Motor nml, Sensation nml, Mood/affect nml Conclusion/Plan - Problem List (1) Pulmonary embolism and infarction Conclusion/Plan: Patient started on heparin gtt. Will transition to oral anticoag when appropriate Oxygen 2L via nasal canula for hypoxia. Bilateral lower extremity dopplers ordered Dilaudid IV for pain (2) Atelectasis of both lungs Conclusion/Plan: Incentive spirometer ordered Patient on oxygen 2L via nasal canula (3) Liver mass Conclusion/Plan: Abdominal US ordered to asses mass Patient will subsequently need a biopsy Will contact IR about possibly scheduling (4) Depression Conclusion/Plan: On Zoloft (5) Tibial plateau fracture, left Conclusion/Plan: Occured 2 weeks ago IN the process of healing. Patient denied any significant pain Qualifiers: Fracture type: closed Qualified Code(s): S82.142A - Displaced bicondylar fracture of left tibia, initial encounter for closed fracture - Lab Results Fish Bones: 07/16/19 02:05 07/16/19 02:05 Core Measures - Anticipated LOS I expect patient to be DC'd or transferred within 96 hours.: Yes
[2019-07-16 06:56] LABS: HGB - HEMOGLOBIN 11.1 g/dL (14.0-18.0); MEAN CORPUSCULAR HEMOGLOBIN 29.8 pg (27.0-31.0); MEAN CORPUSCULAR HGB CONC 32.8 g/dL (32.0-36.0); MEAN CORPUSCULAR VOLUME 90.9 fL (80.0-94.0); RED BLOOD COUNT 3.72 10^6/uL (4.70-6.10); RED CELL DISTRIBUTION WIDTH 12.1 % (12.0-15.0); WHITE BLOOD COUNT 6.8 x10^3/uL (4.8-10.8)
--- NOTE | 2019-07-16 09:28 | Ultrasound Report ---
Reason: PE Procedure Date: 07/16/2019 Accession Number: [id number] / [id number] Procedure: US - Duplex Ext Veins Bilateral CPT Code: FULL RESULT: EXAM: BILATERAL LOWER EXTREMITY VENOUS ULTRASOUND EXAM DATE: 07/16/2019 09:15 AM. CLINICAL HISTORY: Known PE. COMPARISON: None. TECHNIQUE: Real-time sonographic vascular imaging was performed by the home health nurse through the lower extremities utilizing both color-flow and Doppler spectral analysis. Multiple customer operations representative static images were saved for review. FINDINGS: Right: Common Femoral Vein (CFV): Normal. CFV-GSV Junction: Normal. Profunda Femoral Vein (PFV): Normal. Femoral Vein (FV) Prox: Normal. Femoral Vein (FV) Mid: Normal. Femoral Vein (FV) Dist: Normal. Popliteal Vein: Normal. Posterior Tibial Veins: Normal. Peroneal Veins: Normal. Left: Common Femoral Vein (CFV): Normal. CFV-GSV Junction: Normal. Profunda Femoral Vein (PFV): Normal. Femoral Vein (FV) Prox: Normal. Femoral Vein (FV) Mid: Normal. Femoral Vein (FV) Dist: Normal. Popliteal Vein: Normal. Posterior Tibial Veins: Normal. Peroneal Veins: Long segment occlusive thrombus in 1 of the 2 peroneal veins. Second peroneal vein is not seen. Other: Debris-containing mildly complex left popliteal fossa collection measures 3 x 1.4 x 2.4 cm. No internal vascularity identified. IMPRESSION: 1. Occlusive long segment thrombus in 1 of the 2 left peroneal veins. Second left peroneal vein not seen. 2. No superficial or deep venous thrombosis of the right leg. 3. Complex debris-containing left popliteal fossa collection measuring 3 x 1.4 x 2.4 cm. RADIA
--- NOTE | 2019-07-16 09:32 | Ultrasound Report ---
Reason: liver mass. ?fluid filled vs solid Procedure Date: 07/16/2019 Accession Number: [id number] / [id number] Procedure: US - Abdomen Limited CPT Code: FULL RESULT: EXAM: ABDOMEN ULTRASOUND LIMITED, RUQ EXAM DATE: 07/16/2019 09:15 AM. CLINICAL HISTORY: Liver lesion seen on recent prior CT pulmonary angiogram. Question fluid filled vs solid. COMPARISON: CHEST ANGIO 07/16/2019 4:02 AM. TECHNIQUE: Real-time scanning was performed with static images obtained. FINDINGS: Exam somewhat limited by patient inability to take a deep breath or hold respiration. Placement of monitoring devices also limits evaluation. Liver: Normal in size and echotexture. There is an isoechoic solid ovoid mass in the right lobe of the liver measuring 3.5 x 3.1 x 3.5 cm, probably corresponding to the hypodense lesion seen on recent prior CT. No internal or peripheral vascular flow visualized. The right lobe of the liver measures up to 16.6 cm. Main portal vein flow: Hepatopetal. Gallbladder: Normal. No stones, wall thickening, or sonographic De La Cruz's sign. Biliary System: CBD measures 5.7 mm. No intrahepatic or extrahepatic ductal dilatation. Other: The right kidney is unremarkable. Right renal length measures up to 11.5 cm. No right-sided hydronephrosis. IMPRESSION: Solid isoechoic right hepatic mass measuring up to 3.5 cm in diameter. Lesion is indeterminate. Recommend further evaluation with liver protocol MRI (preferred) or CT, without and with intravenous contrast. Management above is based on recommendations outlined in an ACR White Paper: Samanta Lang. et al. Management of Incidental Liver Lesions on CT: A White Paper of the ACR Incidental Findings Committee. Journal of the [place] [employer] 0, (2017). RADIA
[2019-07-16] MEDS: HEPARIN 25000UNITS/500ML (D5W) 25,000 UNIT/500 ML BAG IV SCH (09:46)
[2019-07-16 09:58] LABS: HGB - HEMOGLOBIN 11.8 g/dL (14.0-18.0); MEAN CORPUSCULAR HEMOGLOBIN 29.6 pg (27.0-31.0); MEAN CORPUSCULAR HGB CONC 32.6 g/dL (32.0-36.0); MEAN PLATELET VOLUME 9.8 fL (7.4-11.4); RED BLOOD COUNT 3.98 10^6/uL (4.70-6.10); RED CELL DISTRIBUTION WIDTH 12.3 % (12.0-15.0)
[2019-07-16] MEDS: SODIUM CHLORIDE FLUSH 0.9% 10 ML SYRINGE IVP SCH ×2 (10:51→17:53)
[2019-07-16] MEDS: POLYETHYLENE GLYCOL 3350 17 GM PACKET PO SCH (10:55)
[2019-07-16] MEDS: ACETAMINOPHEN/CODEINE 300 MG/30 MG TABLET PO PRN (12:31)
[2019-07-16] MEDS: SERTRALINE 50 MG TABLET PO SCH (20:40)
[2019-07-16] MEDS ORDERED: LATANOPROST 0.005% OPHTH DROPS EACHEYE SCH (21:00)
[2019-07-16] MEDS ORDERED: traZODone 50 MG TABLET PO SCH (21:00)
[2019-07-16] MEDS ORDERED: ATORVASTATIN 10 MG TABLET PO SCH (21:00)
[2019-07-16] MEDS ORDERED: GABAPENTIN 100 MG CAPSULE PO SCH (21:00)
[2019-07-16] MEDS ORDERED: MAGNESIUM HYDROXIDE 2,400 MG/30 ML UDC PO ONE (21:50)
[2019-07-16] MEDS: SENNA 8.6 MG TABLET PO SCH ×2 (23:03→23:40)
[2019-07-17 03:45] LABS: BASOPHILS % (AUTO) 0.2 %; EOSINOPHILS % (AUTO) 0.7 %; HGB - HEMOGLOBIN 10.4 g/dL (14.0-18.0); LYMPHOCYTES % (AUTO) 18.5 %; MEAN CORPUSCULAR HEMOGLOBIN 29.4 pg (27.0-31.0); MEAN CORPUSCULAR HGB CONC 32.3 g/dL (32.0-36.0); MEAN PLATELET VOLUME 9.6 fL (7.4-11.4); MONOCYTES # (AUTO) 0.5 10^3/uL (0.0-1.0); MONOCYTES % (AUTO) 8.3 %; NEUTROPHILS # (AUTO) 3.9 10^3/uL (1.5-6.6); NEUTROPHILS % (AUTO) 72.1 %; PLT - PLATELET COUNT 154 10^3/uL (130-450); RED BLOOD COUNT 3.54 10^6/uL (4.70-6.10); RED CELL DISTRIBUTION WIDTH 12.3 % (12.0-15.0); WHITE BLOOD COUNT 5.5 x10^3/uL (4.8-10.8)
[2019-07-17 03:55] LABS: CALCIUM 8.7 mg/dL (8.5-10.3); CREATININE 0.9 mg/dL (0.6-1.2)
[2019-07-17] MEDS: SODIUM CHLORIDE FLUSH 0.9% 10 ML SYRINGE IVP SCH ×3 (04:17→17:01)
[2019-07-17] MEDS: HEPARIN 25000UNITS/500ML (D5W) 25,000 UNIT/500 ML BAG IV SCH (04:34)
[2019-07-17] MEDS: ACETAMINOPHEN/CODEINE 300 MG/30 MG TABLET PO PRN ×2 (05:24→09:25)
[2019-07-17] MEDS: SENNA 8.6 MG TABLET PO SCH ×2 (09:08→14:05)
[2019-07-17] MEDS: POLYETHYLENE GLYCOL 3350 17 GM PACKET PO SCH (09:08)
[2019-07-17] MEDS: SERTRALINE 50 MG TABLET PO SCH (09:09)
[2019-07-17] MEDS ORDERED: IOVERSOL 320 100 ML VIAL IVP ONE (10:46)
--- NOTE | 2019-07-17 11:17 | ADVANCE CARE PLANNING NOTE ---
Advance Care Planning - Planning Encounter Date: 07/17/19 Time: 10:45 Purpose: To establish wishes regarding aggressiveness of care, review his diagnoses, confirm Code Status wishes. Parties in Attendance: This Hospitalist spoke to the patient in his room regarding all the above, then he requested that he call his sister, Eneida, who was then on the speaker phone, as I repeated the entire conversation. Decisional Capacity of the Patient: The patient admits he is getting forgetful, and he requested that I contact his sister so she can be involved in treatment decisions. - Diagnosis for Encounter (1) Liver mass Summary: This was found on admission imaging. - Encounter Subjective/Patient's Story: Patient was born on [facility]. 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 He moved back to [facility]. He was in a relationship with another man for 6 years, and this partner 8 months ago. (The patient becomes tearful as he describes that). The patient describes that his sister, who is his only living relative, was never able to accept the patient's homosexuality. Patient requests that he does not want his sexual preference known socially. The patient lives alone, but has a regional sales consultant who does laundry and cleaning. He makes his own breakfast but has rastafari ladies bring him dinner every evening. He drives a car. He is in charge of his own medications, but reprts that he has been evaluated for worsening memory by a Neurologist in [place] and states that the results were "good". He cannot remember, however, who referred him for that neurology appointment. The patient normally gardens, takes care of his dog and attends physical therapy 3 times a week for the past 1 year. This stopped 2 weeks ago when he fractured his tibial plateau in a fall and was discharged with a brace, and became nearly immobilized, only using a walker with a seat, to get around the house for the past 2 weeks. He developed pleuritic chest pain 2 days before this admission which was so severe that he presented to the emergency room. Objective/Medical Story: This is a 79-year-old white male with history of hypertension on no medication, and depression on Zoloft. He suffered a fall after his dog bowled him over 2 weeks ago and he was here for a tibial plateau fracture for pain management then. He got discharged to home and found his mother's old four-wheel walker with a seat, which he used for the following 2 weeks, by sitting on it and pushing himself around his residence. The patient previously attended physical therapy for the past 1 year, 3 times a week, which stopped 2 weeks ago. He was admitted now with new pleuritic chest pain and diagnosed with 2 areas of pulmonary embolism in the right lung. A DVT has been confirmed and he is on IV heparin and getting pain management. A new finding of a liver mass has required him to have further testing before discharging him on oral anticoagulants. An ultrasound of the liver showed that the size of the mass is 3.5 cm. I [facility],who recommended that he have a three-phase CT scan to determine if the features of the liver mass are malignant, metastatic, or benign. That plan was explained to the patient and sister, at this meeting. Goals of Care: 1) Patient will be transitioned off the iv Heparin drip, and be discharged on oral anticoagulants, if the liver mass appears benign. However, if the mass is suspicious for cancer, he will need a biopsy, and the Die Tester advised that the biopsy be done sooner than 3 months (which would be the time planned for treating a first occurrence of DVT/PE with oral anticoagulants). 2) His sister felt that he needs better rehab, after having the tibial fracture. I will refer this request to our Psychologist Experimental, who will either help with arranging for a SNF discharge, for PT and OT, if the patient is here longer (for a liver biopsy), or to make arrangements for Home Health or caregivers come to his house, if he is discharged home. 3) The patient wants all resuscitative efforts and Full Code status. Plan: As described in Goals of Care Code Status: Attempt Resuscitation Time spent on advance care plannin min
--- NOTE | 2019-07-17 12:25 | CT Report ---
Reason: Liver mass Procedure Date: 07/17/2019 Accession Number: [id number] / [id number] Procedure: CT - Abdomen/Pelvis W CPT Code: FULL RESULT: EXAM: CT ABDOMEN WITH CONTRAST EXAM DATE: 07/17/2019 11:20 AM. CLINICAL HISTORY: Liver mass. COMPARISONS: CHEST ANGIO 07/16/2019 4:02 AM. TECHNIQUE: Axial helical CT images obtained through the abdomen and liver after intravenous contrast. Imaging obtained during the arterial, venous and delayed phases. Multiplanar reformats performed. IV contrast: OPTI 320 90ML. Enteric contrast: No. Reconstructions: Coronal and sagittal. In accordance with CT protocol optimization, one or more of the following dose reduction techniques were utilized for this exam: automated exposure control, adjustment of mA and/or KV based on patient size, or use of iterative reconstructive technique. FINDINGS: Lung Bases: Small right pleural effusion. Right greater than left lower lobe atelectasis. Liver: 3.5 cm nonenhancing fluid attenuation cyst posterior segment 7 of the liver, does not enhance after contrast. Wall is thin with no internal architecture identified. Gallbladder/Bile Ducts: Unremarkable. Spleen: Normal. Pancreas: Normal. Adrenal Glands: Normal. Kidneys: Normal. No masses or hydronephrosis. Peritoneal Cavity/Bowel: Normal. No free fluid, free air or adenopathy. No masses or acute inflammatory process. Pelvic Organs: Normal. The bladder and visualized pelvic organs are within normal limits. Vasculature: Mild aortic atherosclerosis. No aneurysmal dilatation. Bones: No significant abnormality. Other: None. IMPRESSION: 1. 3.5 cm posterior segment 7 liver lesion appears to be a nonenhancing simple cyst. 2. No enhancing mass, fluid or inflammatory process in the abdomen. 3. Small right pleural effusion and bilateral lower lobe atelectasis. RADIA
[2019-07-17] MEDS ORDERED: DOCUSATE SODIUM 250 MG CAPSULE PO SCH (13:00)
--- NOTE | 2019-07-17 13:18 | Discharge Plan ---
Discharge Plan Problem Reviewed?: Yes Disposition: Home, Self Care Condition: Stable Prescriptions: Hydrocodone/Acetaminophen [Vicodin 5-300 mg Tablet] 1 each PO TID PRN #10 tablet PRN Reason: Severe Pain Rivaroxaban [Xarelto] 10 mg PO BIDWM #14 tablet Diet: Regular Activity Restrictions: Activity as Tolerated Shower Restrictions: No Driving Restrictions: Yes Assistance Devices: Walker Instruction Topics: Embolism Pulmonary, DVT, Rivaroxaban oral tablets Health Concerns: Admitted with pain on inspiration which has been found to be from blood clots in the lung. The evaluation of a liver mass showed it is a simple cyst. Plan of Treatment: Start taking Xarelto with breakfast and dinner. The dose is 10 mg twice a day for 1 week, then 5 mg twice a day for 3 months. The 10 mg twice a day dose has been prescribed, but the lower dose needs to be prescribed by your PCP. Stop taking Ibuprofen. Use can keep taking Zoloft and using the eye drops. New pain medication has been ordered, and you should use the Incentive Spirometer three times an hour, to help inflate your lungs, and prevent lung collapse and prevent a pneumonia. Home Health Nursing has been ordered for you, as well a a Bath Aide, Home Physical Therapy and Home Occupational Therapy. Care Goals: Proper medication dosing, watching for excessive bleeding, and improving physical activity after the old fractured tibia. Assessment: The patient is agreeable with the plan. Sister Eneida was also informed. Additional Instructions or Follow Up instructions: You should be seen by your Primary Care Provider, Dr Zahra King, for hospital follow-up in the next 5-7 days. She will give you medication refills. If you have new or worsening symptoms, call your PCP for advice, or come to the ER. Follow-Up Care: Home Health - RN, Home Health - PT, Home Health - OT No Smoking: If you smoke, Please STOP! Call for help. Follow-up with: Zahra King DO [Primary Care Provider] -
--- NOTE | 2019-07-17 13:56 | DISCHARGE SUMMARY ---
Discharge Summary Admit Date: 07/16/19 Discharge Date: 07/17/19 Discharging Provider: Dr Yasmin Vaughn Primary Care Provider: Dr Zahra King Code Status: Attempt Resuscitation Condition at Discharge: Stable Discharge Disposition: 06 [facility] - DIAGNOSES Admission Diagnoses: 1) Pleuritic chest pain 2) PE 3) Recent tibial fractures Discharge Diagnoses with Status of Each Condition: See below - HPI History of Present Illness: From the admission H&P of Dr Woodard: Patient is a 79 y/o male who presented to the ED with complain of right-sided thoracic pain which has been going on for 2 days. It is worse with inspiration and as a result he is reluctant to take in deep breaths. He finally came in because the pain was unbearable. He was mildly hypoxic in the ED, warranting 2L of Oxygen via nasal canula for an O2Sat above 90%. He usually does not wear oxygen at home. He was recently admitted to the hospital with a tibial plateau fracture. He still has a wrap around the knee and has a four-wheeled walker to get around with. He denies any recent fall or any significant pain in the knee. He denies substernal chest pain, abd pain, fever or chills. He was nauseous but denied vomiting. Work up in the ED included rib XRays that showed no fracture and a chest CT for PE which showed segmental PE's. There was also an incidental finding of a liver mass. In light of his hypoxia, pain and reluctance/difficulty taking deep breaths, he was admitted for further treatment. - HOSPITAL COURSE Hospital Course: 1) Pulmonary embolism with infarction He was started on iv narcotics then oral Vicodin for control of pleuritic pain, started using an Incentive Spirometer after getting teaching from Resp Therapy, and was started on iv Heparin drip on the DVT/PE protocol. The reason to use IV heparin was to be able to turn off the anticoagulant if the liver mass work-up showed a need for urgent biopsy (see below). The Heparin was transitioned to oral Xarelto and he was discharged on that. 2) Atelectasis of lungs He was noticeably splinting at admission. This was managed with pain control and Incentive Spirometry, which he was discharged home with. 3) DVT, left leg Doppler of the lower extremities confirmed a clot in the L leg of the peroneal system. 4) Simple cyst of the liver The initial CT of the chest saw a mass in the liver. Ultrasound of the abdomen and pelvis revealed that this was a 3.5 cm diameter mass. I had a Hepatology consult via the [facility] line, who recommended that he have a three-phase CT scan to determine if the features of the liver mass are malignant, metastatic, or benign. The scan showed that he had a simple cyst of the liver. Since no liver biopsy would be needed, the management of the above pulmonary embolism was treated in the following way: The IV heparin drip was stopped, he received 1 dose of oral Xarelto and was discharged with a 3-month plan for anticoagulation. 5) Depression His Zoloft was continued while here. 6) Tibial plateau fracture, left He still complained of pain in this area and was wearing a brace, since the fracture 2 weeks previously. I spoke to his sister during this hospitalization, who reported that he was supposed to be having home physical therapy but she was concerned that he was mostly sitting in a quad-walker that has a seat, and moving around his house without standing or walking for the past 2 weeks. He was seen by physical therapy while here. He qualified for Home Health and was ordered to have Home Health PT, OT, long-term and bath aide. He was told not to use Motrin for pain control, while he is on the anticoagulation for 3 months. 7) Dementia, mild The patient volunteered information to me that he was seen by a Neurologist in [place] for poor memory and that his testing result was "good". He could not remember, however, who sent him to the Neurologist for that evaluation. In my communication with him, he displayed poor short-term memory, and requested that his sister be called with all medical updates and to help him make decisions. - ALLERGIES Allergies/Adverse Reactions: Allergies Allergy/AdvReac Type Severity Reaction Status Date / Time No Known Drug Allergies Allergy Verified 06/29/19 23:50 - MEDICATIONS Home Medications: Ambulatory Orders Medication Instructions Recorded Confirmed Sertraline HCl [Zoloft] 100 mg PO BID 11/07/13 07/16/19 Latanoprost 0.005% Ophth Drops 1 drops EACHEYE QPM 06/30/19 07/16/19 [Xalatan Ophth Drops] Hydrocodone/Acetaminophen [Vicodin 1 each PO TID PRN #10 tablet 07/17/19 5-300 mg Tablet] Rivaroxaban [Xarelto] 10 mg PO BIDWM #14 tablet 07/17/19 - PHYSICAL EXAM AT DISCHARGE General Appearance: positive: No acute distress Eyes Bilateral: positive: Normal inspection ENT: positive: No signs of dehydration Neck: positive: Nml inspection, Thyroid nml, No JVD Respiratory: positive: No respiratory distress, Other (Diminshed breath sounds R lateral chest, no rub) Cardiovascular: positive: Regular rate & rhythm, No murmur Extremities: positive: No pedal edema, Other (L knee bandaged) Neurologic/Psychiatric: positive: Oriented x3, Other (Memory poor (remembered 2 of 3 objects)) - LABS Result Diagrams: 07/17/19 03:40 07/17/19 03:40 - DIAGNOSTIC IMAGING Diagnostic Imaging Results: Final report reviewed - FOLLOW UP Follow Up: See PCP in 5-7 days. - TIME SPENT Time Spent in Discharge (Minutes): 60
[2019-07-17] MEDS ORDERED: RIVAROXABAN 10 MG TABLET PO SCH (17:00)
[2019-07-17 18:11] VITALS: BP 116/63
[2019-07-18] MEDS ORDERED: RIVAROXABAN 10 MG TABLET PO SCH (08:00)
== END 2019-07-17 19:37 | disposition home health service (06) | DRG 176 ==
LOC: EDUNIT# → ED 00:45 → MS2 05:55
PROVIDERS: ADMIT Internal Medicine; ATTEND Internal Medicine
DX: I26.99 Other pulmonary embolism without acute cor pulmonale (principal); J98.11 Atelectasis; R09.02 Hypoxemia; E86.0 Dehydration; R16.0 Hepatomegaly, not elsewhere classified; I82.4Y2 Acute embolism and thrombosis of unspecified deep veins of left proximal lower extremity; F32.9 Major depressive disorder, single episode, unspecified; F41.9 Anxiety disorder, unspecified; K76.89 Other specified diseases of liver; I10 Essential (primary) hypertension; K21.9 Gastro-esophageal reflux disease without esophagitis; F03.90 Unspecified dementia, unspecified severity, without behavioral disturbance, psychotic disturbance, mood disturbance, and anxiety; S82.142D Displaced bicondylar fracture of left tibia, subsequent encounter for closed fracture with routine healing; W19.XXXD Unspecified fall, subsequent encounter; Z79.891 Long term (current) use of opiate analgesic; Z87.11 Personal history of peptic ulcer disease
CPT/HCPCS: 36415; 71101; 71275; 74177; 76705; 80048; 80053; 82105; 83690; 83880; 85025; 85027; 85379; 85520; 93970; 96374; 96375; 97162; 97530; 99284; 99285; A9270; J1170; Q9967

== ENCOUNTER 2019-09-09 11:05 | Outpatient (CLI) | payer MEDICARE, OTHER ==
--- NOTE | 2019-09-12 09:14 | DEXA Report ---
Reason: BONE DISORDER Procedure Date: 09/09/2019 Accession Number: [id number] / [id number] Procedure: DEX - Dexa Spine and/or Hip CPT Code: FULL RESULT: EXAM: Dexa Spine and/or Hip DATE: 09/09/2019 11:53 AM CLINICAL HISTORY: Rheumatoid arthritis, long-term steroid use. TECHNIQUE: Dual energy x-ray absorptiometry (DXA) was performed on a Moasis System. Regions measured are the AP Spine, femoral neck, and if needed forearm. COMPARISON: 09/05/2009 In accordance with the International Society for Clinical Densitometry (ISCD) guidelines, data from previous exams may be reanalyzed using current recommendations and techniques. This is done to allow a more accurate basis for comparison with the current study. FINDINGS: The data for the lumbar spine is as follows: BMD (g/cm/cm) T-SCORE Z-SCORE REGION L1 1.162 0.0 0.7 L2 1.306 0.5 1.2 L3 1.245 0.0 0.7 L4 1.366 1.0 1.7 TOTAL 1.273 0.4 1.1 NOTE: All evaluable vertebrae are used for classification The data for the hip is as follows: BMD (g/cm/cm) T-SCORE Z-SCORE REGION Neck 0.871 -1.5 -0.1 TOTAL 0.977 -0.9 0.1 NOTE: The femoral neck or total proximal femur, whichever is lowest, is used for classification. IMPRESSION: THE WHO CLASSIFICATION BASED ON THE INTERNATIONAL REFERENCE STANDARD IS OSTEOPENIA, REFERENCE LEFT FEMORAL NECK. THE FRACTURE RISK IS INCREASED. RECOMMENDATION: Patients with diagnosis of osteoporosis or osteopenia should have regular bone mineral density assessment. For those eligible for Medicare, routine testing is allowed once every 2 years. Testing frequency can be increased for patients who have rapidly progressing disease or for those who are receiving medical therapy to restore bone mass. COMMENT: World Health Organization (WHO) definitions for osteoporosis and osteopenia: NORMAL BMD: T-score at -1.0 or higher, fracture risk is low OSTEOPENIA BMD: T-score between -1.0 and -2.5, fracture risk is increased. OSTEOPOROSIS BMD: T-score at -2.5 or lower, fracture risk is high. National Osteoporosis Foundation recommends: 1. Obtain adequate dietary calcium (at least 1200 mg per day) and vitamin D (400-800 international units per day). 2. Participate, as appropriate, in regular weightbearing and muscle-strengthening exercise. 3. Avoid tobacco use and reduce alcohol and caffeine intake. 4. For more detailed information see the website at www.NOF.org.
== END 2019-09-09 11:06 | disposition home or self-care (01) ==
LOC: DI 11:05
PROVIDERS: ATTEND Family Medicine
DX: M85.89 Other specified disorders of bone density and structure, multiple sites (principal)
CPT/HCPCS: 77080

== ENCOUNTER 2020-10-17 08:00 | Outpatient (CLI) | payer MEDICARE, OTHER ==
[2020-10-17 13:02] LABS: BASOPHILS % (AUTO) 0.4 %; EOSINOPHILS # (AUTO) 0.1 10^3/uL (0.0-0.7); EOSINOPHILS % (AUTO) 2.2 %; HGB - HEMOGLOBIN 15.3 g/dL (14.0-18.0); LYMPHOCYTES # (AUTO) 1.2 10^3/uL (1.5-3.5); LYMPHOCYTES % (AUTO) 25.3 %; MEAN CORPUSCULAR HEMOGLOBIN 31.6 pg (27.0-31.0); MEAN CORPUSCULAR HGB CONC 32.4 g/dL (32.0-36.0); MEAN CORPUSCULAR VOLUME 97.5 fL (80.0-94.0); MEAN PLATELET VOLUME 10.4 fL (7.4-11.4); MONOCYTES # (AUTO) 0.3 10^3/uL (0.0-1.0); MONOCYTES % (AUTO) 6.8 %; NEUTROPHILS % (AUTO) 64.9 %; PLT - PLATELET COUNT 148 10^3/uL (130-450); RED BLOOD COUNT 4.84 10^6/uL (4.70-6.10); WHITE BLOOD COUNT 4.6 x10^3/uL (4.8-10.8)
[2020-10-17 13:36] LABS: ALBUMIN 4.7 g/dL (3.2-5.5); ALBUMIN/GLOBULIN RATIO 1.8 (1.0-2.2); ALKALINE PHOSPHATASE 45 IU/L (42-121); ALT ALANINE AMINOTRANSFERASE 27 IU/L (10-60); AST ASPARTATE AMINOTRANSFERASE 26 IU/L (10-42); BILIRUBIN,TOTAL 0.9 mg/dL (0.2-1.0); BUN - BLOOD UREA NITROGEN 14 mg/dL (6-20); CALCIUM 9.3 mg/dL (8.5-10.3); CARBON DIOXIDE - CO2 28 mmol/L (21-32); CHLORIDE 105 mmol/L (101-111); CHOL/HDL RATIO 3.3 (<5.0); CHOLESTEROL 213 mg/dL; CREATININE 0.9 mg/dL (0.6-1.2); GAMMA GLUTAMYL TRANSPEPTIDASE 24 IU/L (8-55); GLUCOSE 122 mg/dL (70-100); HDL CHOLESTEROL 64 mg/dL; LDL CHOLESTEROL,CALCULATED 131 mg/dL; SODIUM 141 mmol/L (135-145); TOTAL PROTEIN 7.3 g/dL (6.7-8.2); VLDL CHOLESTEROL 18 mg/dL
== END 2020-10-17 23:59 | disposition home or self-care (01) ==
LOC: LAB.WCP 08:00
PROVIDERS: ATTEND Family Medicine
DX: R42 Dizziness and giddiness (principal); E78.5 Hyperlipidemia, unspecified; F10.20 Alcohol dependence, uncomplicated
CPT/HCPCS: 36415; 80053; 80061; 82977; 83721; 85025

== ENCOUNTER 2020-11-13 15:33 | Outpatient (CLI) | payer MEDICARE, OTHER ==
[2020-11-13] MEDS ORDERED: GADOBUTROL 7.5 MMOL/7.5 ML VIAL ONE (15:56)
[2020-11-13] MEDS ORDERED: GADOBUTROL 7.5 MMOL/7.5 ML VIAL IVP ONE (16:50)
--- NOTE | 2020-11-13 17:30 | MRI Report ---
PROCEDURE: Brain W/WO INDICATIONS: Vertigo CONTRAST: IV CONTRAST: Gadavist ml: 7.5 TECHNIQUE: Noncontrast axial T1 spin echo, axial T2 fast spin echo, sagittal and axial FLAIR, coronal T2 fast sp in echo, axial gradient echo, axial diffusion and ADC through the brain. After the administration of contrast, axial and coronal T1 spin echo with fat saturation through the brain. COMPARISON: None. FINDINGS: Image quality: Excellent. CSF spaces: Basal cisterns are patent. No extra-axial fluid collections. Ventricles are normal in size and shape. Internal auditory canals: There is no mass in the cerebellopontine angle or internal auditory canals. Normal signal of the brainstem at the 7th and 8th cranial nerve entry zones. No signal abnormality a long the course of the 7th and 8th cranial nerve complexes. Normal T2 signal of the inner ear structu res. No middle ear effusion. Small bilateral mastoid air cell effusions. Brain: OR volume loss with moderate chronic microvascular ischemic changes. No midline shift. No int racranial bleeds or masses. No abnormal intracranial enhancement. There is cerebral volume loss for age. There is periventricular white matter chronic small vessel ischemic change. The brainstem jeff ears normal. Diffusion-weighted images demonstrate no acute ischemic insults. No chronic ischemic i nsults. Normal intravascular flow voids are present. Skull and face: Calvarial marrow is normal in signal. Orbits appear normal. Sinuses: No significant abnormal paranasal sinus opacification. IMPRESSION: Small bilateral mastoid air cell effusions. Chronic microvascular ischemic changes with global cerebral volume loss. Reviewed by: Josh Briones MD on 11/13/2020 5:29 PM PST Approved by: Josh Briones MD on 11/13/2020 5:29 PM PST Station ID: [id number]
== END 2020-11-13 15:34 | disposition home or self-care (01) ==
LOC: DI 15:33
PROVIDERS: ATTEND Family Medicine
DX: J34.89 Other specified disorders of nose and nasal sinuses (principal)
CPT/HCPCS: 70553; A9585

== ENCOUNTER 2020-11-27 07:00 | Outpatient (CLI) | payer MEDICARE, OTHER | END 2020-11-27 23:59 | disposition home or self-care (01) | LOC: COV 07:00 | PROVIDERS: ATTEND Family Medicine | DX: R53.83 Other fatigue (principal); R19.7 Diarrhea, unspecified; R43.8 Other disturbances of smell and taste; R11.2 Nausea with vomiting, unspecified; Z20.822 Contact with and (suspected) exposure to COVID-19 ==

== ENCOUNTER 2021-01-07 08:28 | Outpatient (CLI) | payer MEDICARE, OTHER | END 2021-01-07 08:29 | disposition short-term general hospital (02) | LOC: EMS 08:28 | DX: R10.11 Right upper quadrant pain (principal); R11.0 Nausea | CPT/HCPCS: A0425; A0427 ==

== ENCOUNTER 2021-01-16 08:00 | Outpatient (CLI) | payer MEDICARE, OTHER | END 2021-01-16 23:59 | disposition home or self-care (01) | LOC: LAB.WCP 08:00 | PROVIDERS: ATTEND Family Medicine | DX: Z85.46 Personal history of malignant neoplasm of prostate (principal) | CPT/HCPCS: 36415; 84153 ==

== ENCOUNTER 2021-02-27 08:00 | Outpatient (CLI) | payer MEDICARE, OTHER ==
[2021-02-27 18:05] LABS: BASOPHILS % (AUTO) 0.4 %; EOSINOPHILS # (AUTO) 0.2 10^3/uL (0.0-0.7); EOSINOPHILS % (AUTO) 3.8 %; HCT - HEMATOCRIT 48.4 % (42.0-52.0); HGB - HEMOGLOBIN 15.8 g/dL (14.0-18.0); LYMPHOCYTES # (AUTO) 1.5 10^3/uL (1.5-3.5); LYMPHOCYTES % (AUTO) 32.3 %; MEAN CORPUSCULAR HEMOGLOBIN 33.1 pg (27.0-31.0); MEAN CORPUSCULAR HGB CONC 32.6 g/dL (32.0-36.0); MEAN CORPUSCULAR VOLUME 101.3 fL (80.0-94.0); MEAN PLATELET VOLUME 10.3 fL (7.4-11.4); MONOCYTES # (AUTO) 0.3 10^3/uL (0.0-1.0); MONOCYTES % (AUTO) 6.3 %; NEUTROPHILS # (AUTO) 2.7 10^3/uL (1.5-6.6); PLT - PLATELET COUNT 164 10^3/uL (130-450); RED BLOOD COUNT 4.78 10^6/uL (4.70-6.10); RED CELL DISTRIBUTION WIDTH 13.4 % (12.0-15.0); WHITE BLOOD COUNT 4.8 x10^3/uL (4.8-10.8)
[2021-02-27 18:24] LABS: CALCIUM 9.7 mg/dL (8.5-10.3); CREATININE 0.9 mg/dL (0.6-1.2); POTASSIUM 4.3 mmol/L (3.5-5.0)
== END 2021-02-27 23:59 | disposition home or self-care (01) ==
LOC: LAB.WCP 08:00
PROVIDERS: ATTEND Family Medicine
DX: R42 Dizziness and giddiness (principal); I26.99 Other pulmonary embolism without acute cor pulmonale; F32.9 Major depressive disorder, single episode, unspecified
CPT/HCPCS: 36415; 80048; 85025

== ENCOUNTER 2021-07-09 08:53 | Outpatient (CLI) | payer MEDICARE, OTHER ==
[2021-07-09 12:13] LABS: BASOPHILS % (AUTO) 0.2 %; EOSINOPHILS # (AUTO) 0.2 10^3/uL (0.0-0.7); EOSINOPHILS % (AUTO) 4.1 %; HCT - HEMATOCRIT 47.2 % (42.0-52.0); HGB - HEMOGLOBIN 15.9 g/dL (14.0-18.0); LYMPHOCYTES # (AUTO) 1.1 10^3/uL (1.5-3.5); LYMPHOCYTES % (AUTO) 27.3 %; MEAN CORPUSCULAR HEMOGLOBIN 34.2 pg (27.0-31.0); MEAN CORPUSCULAR HGB CONC 33.7 g/dL (32.0-36.0); MEAN CORPUSCULAR VOLUME 101.5 fL (80.0-94.0); MEAN PLATELET VOLUME 9.6 fL (7.4-11.4); MONOCYTES # (AUTO) 0.3 10^3/uL (0.0-1.0); MONOCYTES % (AUTO) 7.3 %; NEUTROPHILS # (AUTO) 2.5 10^3/uL (1.5-6.6); NEUTROPHILS % (AUTO) 60.9 %; PLT - PLATELET COUNT 162 10^3/uL (130-450); RED BLOOD COUNT 4.65 10^6/uL (4.70-6.10); RED CELL DISTRIBUTION WIDTH 12.1 % (12.0-15.0); WHITE BLOOD COUNT 4.1 x10^3/uL (4.8-10.8)
[2021-07-09 12:40] LABS: ALBUMIN 4.5 g/dL (3.2-5.5); ALBUMIN/GLOBULIN RATIO 1.6 (1.0-2.2); CALCIUM 9.5 mg/dL (8.5-10.3); POTASSIUM 4.4 mmol/L (3.5-5.0); TOTAL PROTEIN 7.3 g/dL (6.7-8.2)
[2021-07-09 12:51] LABS: THYROID STIMULATING HORMONE 1.44 uIU/mL (0.34-5.60)
[2021-07-09 12:52] LABS: THYROID STIMULATING HORMONE 1.46 uIU/mL (0.34-5.60)
[2021-07-09 12:54] LABS: FREE T3 3.1 pg/mL (2.5-3.9); FREE T4 (FREE THYROXINE) 0.78 ng/dL (0.58-1.64)
== END 2021-07-09 23:59 | disposition home or self-care (01) ==
LOC: LAB.WCP 08:53
PROVIDERS: ATTEND Family Medicine
DX: I10 Essential (primary) hypertension (principal); R42 Dizziness and giddiness; F10.20 Alcohol dependence, uncomplicated; F32.9 Major depressive disorder, single episode, unspecified; F41.9 Anxiety disorder, unspecified
CPT/HCPCS: 36415; 80053; 84439; 84443; 84481; 85025

== ENCOUNTER 2021-08-14 08:56 | Outpatient (CLI) | payer MEDICARE, OTHER | END 2021-08-14 08:57 | disposition critical access hospital (66) | LOC: EMS 08:56 | DX: R68.83 Chills (without fever) (principal); R23.2 Flushing | CPT/HCPCS: A0425; A0429 ==

== ENCOUNTER 2021-08-14 09:15 | Emergency (ER) | payer MEDICARE, OTHER ==
[2021-08-14] MEDS ORDERED: FOLIC ACID INJ 1 MG, THIAMINE INJ 100 MG, MAGNESIUM SULFATE 2 GM, MULTIVITAMIN 10 ML in... IV STA ×5 (09:31)
--- NOTE | 2021-08-14 09:35 | ED Physician Documentation ---
History of Present Illness - Stated complaint Stated Complaint: GEN WEAKNESS - Chief complaint Chief Complaint: General - History obtained from History obtained from: Patient, EMS - Additonal information Additional information: Patient comes emergency department chief complaint of feeling generally unwell this morning. He states he cannot really explain how he felt but he just felt "sick". He denies any chest pain or shortness of breath. No abdominal pain or vomiting. Patient states that he has been nauseated for days. He has been binge drinking for a long time, many years, and lately has been drinking About a third of 1/5 of liquor each day. The patient states that he has not had any fevers or cough. He has not noticed any jaundice. His last drink was around 1900 yesterday. He does note that he has not been eating much in the way of regular food. He states he tries to drink Ensure to keep his nutritional status up, but with the nausea over the last couple of weeks he has not even been drinking much Ensure. No other complaints at this time. Review of Systems Ten Systems: 10 systems reviewed and negative Constitutional: reports: Reviewed and negative Eyes: reports: Reviewed and negative Ears: reports: Reviewed and negative Nose: reports: Reviewed and negative Throat: reports: Reviewed and negative Cardiac: reports: Reviewed and negative Respiratory: reports: Reviewed and negative GI: reports: Nausea : reports: Reviewed and negative Skin: reports: Reviewed and negative Musculoskeletal: reports: Reviewed and negative Neurologic: reports: Generalized weakness Psychiatric: reports: Reviewed and negative Endocrine: reports: Reviewed and negative Immunocompromised: reports: Reviewed and negative PD PAST MEDICAL HISTORY - Past Medical History Cardiovascular: Hypertension, Pulmonary embolism Respiratory: None Neuro: None Endocrine/Autoimmune: None GI: GERD, Ulcers, Colon polyps : None HEENT: None Psych: Depression, Anxiety Musculoskeletal: Fatigue, Chronic back pain Derm: None - Past Surgical History Past Surgical History: Yes General: Colonoscopy Ortho: Other HEENT: Tonsil/Adenoidectomy - Present Medications Home Medications: Ambulatory Orders Medication Instructions Recorded Confirmed Sertraline HCl [Zoloft] 100 mg PO BID 11/07/13 07/16/19 Latanoprost 0.005% Ophth Drops 1 drops EACHEYE QPM 06/30/19 07/16/19 [Xalatan Ophth Drops] Hydrocodone/Acetaminophen [Vicodin 1 each PO TID PRN #10 tablet 07/17/19 5-300 mg Tablet] Rivaroxaban [Xarelto] 10 mg PO BIDWM #14 tablet 07/17/19 - Allergies Allergies/Adverse Reactions: Allergies Allergy/AdvReac Type Severity Reaction Status Date / Time No Known Drug Allergies Allergy Verified 06/29/19 23:50 - Social History Does the pt smoke?: No Smoking Status: Never smoker Does the pt drink ETOH?: No Does the pt have substance abuse?: No - Immunizations Immunizations are current?: No - POLST Patient has POLST: No PD ED PE NORMAL - Vitals Vital signs reviewed: Yes - General General: Alert and oriented X 3, No acute distress, Well developed/nourished - HEENT HEENT: Atraumatic, PERRL, EOMI, Moist mucous membranes - Neck Neck: Supple, no meningeal sign - Cardiac Cardiac: RRR, No murmur, Strong equal pulses - Respiratory Respiratory: No respiratory distress, Clear bilaterally - Abdomen Abdomen: Soft, Non tender, Non distended - Derm Derm: Normal color, Warm and dry, No rash - Extremities Extremities: No deformity, No edema, No calf tenderness / cord - Neuro Neuro: Alert and oriented X 3, corrections counselor 2-12 intact, Other (Patient is coherent and speech is generally clear, though occasionally, the patient struggles to get his words out.) - Psych Psych: Normal mood, Normal affect Results - Vitals Vitals: Vital Signs - 24 hr 08/14/21 08/14/21 08/14/21 09:20 09:31 11:28 Temperature 96.9 C H 36.6 C Heart Rate 66 62 71 Respiratory 9 L 12 15 Rate Blood Pressure 183/87 H 171/88 H 164/90 H O2 Saturation 100 100 100 Oxygen O2 Source [With Activity] Nasal cannula O2 Source Room air - Labs Labs: Laboratory Tests 08/14/21 08/14/21 08/14/21 09:48 09:48 09:48 WBC 5.4 RBC 4.94 Hgb 17.1 Hct 48.1 MCV 97.4 H MCH 34.6 H MCHC 35.6 RDW 12.1 Plt Count 151 MPV 9.0 Neut # (Auto) 4.1 Lymph # (Auto) 0.9 L [place] # (Auto) 0.3 Eos # (Auto) 0.0 Baso # (Auto) 0.0 Absolute Nucleated RBC 0.00 Nucleated RBC % 0.0 PT 12.4 INR 1.1 Sodium 138 Potassium 4.0 Chloride 99 L Carbon Dioxide 25 Anion Gap 14.0 H BUN 14 Creatinine 0.8 Estimated GFR (MDRD) 93 Glucose 93 Calcium 9.0 Total Bilirubin 1.1 H AST 37 ALT 36 Alkaline Phosphatase 43 Total Protein 7.5 Albumin 4.7 Globulin 2.8 Albumin/Globulin Ratio 1.7 Lipase 33 Ethyl Alcohol 08/14/21 09:48 WBC RBC Hgb Hct MCV MCH MCHC RDW Plt Count MPV Neut # (Auto) Lymph # (Auto) [place] # (Auto) Eos # (Auto) Baso # (Auto) Absolute Nucleated RBC Nucleated RBC % PT INR Sodium Potassium Chloride Carbon Dioxide Anion Gap BUN Creatinine Estimated GFR (MDRD) Glucose Calcium Total Bilirubin AST ALT Alkaline Phosphatase Total Protein Albumin Globulin Albumin/Globulin Ratio Lipase Ethyl Alcohol < 5.0 PD MEDICAL DECISION MAKING - ED course Complexity details: reviewed results, re-evaluated patient, considered differential, d/w patient ED course: The patient was treated with a banana bag and normal saline, and worked up with laboratory studies. Labs were unremarkable. The pt was feeling much better, and able to ambulate without difficulty. We have discussed the need to get help with his drinking. We have discussed the usual indications for return. Departure - Departure Disposition: 01 Home, Self Care Clinical Impression: Alcohol abuse, Generalized weakness Condition: Stable Instructions: ED Alcohol Abuse Discharge Date/Time: 08/14/21 14:54
[2021-08-14] MEDS ORDERED: ONDANSETRON 4 MG/2 ML VIAL IVP STA (09:36)
[2021-08-14 09:58] LABS: BASOPHILS % (AUTO) 0.4 %; EOSINOPHILS % (AUTO) 0.6 %; HCT - HEMATOCRIT 48.1 % (42.0-52.0); HGB - HEMOGLOBIN 17.1 g/dL (14.0-18.0); LYMPHOCYTES # (AUTO) 0.9 10^3/uL (1.5-3.5); LYMPHOCYTES % (AUTO) 16.1 %; MEAN CORPUSCULAR HEMOGLOBIN 34.6 pg (27.0-31.0); MEAN CORPUSCULAR HGB CONC 35.6 g/dL (32.0-36.0); MEAN CORPUSCULAR VOLUME 97.4 fL (80.0-94.0); MONOCYTES # (AUTO) 0.3 10^3/uL (0.0-1.0); MONOCYTES % (AUTO) 6.2 %; NEUTROPHILS # (AUTO) 4.1 10^3/uL (1.5-6.6); NEUTROPHILS % (AUTO) 76.3 %; PLT - PLATELET COUNT 151 10^3/uL (130-450); RED BLOOD COUNT 4.94 10^6/uL (4.70-6.10); RED CELL DISTRIBUTION WIDTH 12.1 % (12.0-15.0); WHITE BLOOD COUNT 5.4 x10^3/uL (4.8-10.8)
[2021-08-14 10:02] LABS: INR 1.1 (0.8-1.2); PT - PROTHROMBIN TIME 12.4 secs (9.9-12.6)
[2021-08-14 10:16] LABS: ALBUMIN 4.7 g/dL (3.2-5.5); ALBUMIN/GLOBULIN RATIO 1.7 (1.0-2.2); BILIRUBIN,TOTAL 1.1 mg/dL (0.2-1.0); CREATININE 0.8 mg/dL (0.6-1.2); TOTAL PROTEIN 7.5 g/dL (6.7-8.2)
[2021-08-14] MEDS ORDERED: SODIUM CHLORIDE 0.9% 1,000 ML IV STA (11:29)
[2021-08-14 11:54] VITALS: BP 164/90
== END 2021-08-14 14:54 | disposition home or self-care (01) ==
LOC: EDUNIT# → ED 09:15
DX: F10.10 Alcohol abuse, uncomplicated (principal); R53.1 Weakness; R11.0 Nausea; I10 Essential (primary) hypertension; Z86.711 Personal history of pulmonary embolism; Z79.01 Long term (current) use of anticoagulants
CPT/HCPCS: 36415; 80053; 83690; 85025; 85610; 93005; 96365; 96375; 99284; G0480; J3411; 80320

== ENCOUNTER 2021-09-06 10:04 | Outpatient (CLI) | payer MEDICARE, OTHER | END 2021-09-06 10:05 | disposition EMS.NT | LOC: EMS 10:04 | DX: R55 Syncope and collapse (principal) ==

== ENCOUNTER 2021-09-06 10:46 | Emergency (ER) | payer MEDICARE, OTHER ==
[2021-09-06 11:36] LABS: BASOPHILS % (AUTO) 0.3 %; EOSINOPHILS # (AUTO) 0.1 10^3/uL (0.0-0.7); EOSINOPHILS % (AUTO) 1.3 %; HCT - HEMATOCRIT 48.8 % (42.0-52.0); HGB - HEMOGLOBIN 16.4 g/dL (14.0-18.0); LYMPHOCYTES # (AUTO) 0.9 10^3/uL (1.5-3.5); LYMPHOCYTES % (AUTO) 14.5 %; MEAN CORPUSCULAR HEMOGLOBIN 33.5 pg (27.0-31.0); MEAN CORPUSCULAR HGB CONC 33.6 g/dL (32.0-36.0); MEAN CORPUSCULAR VOLUME 99.8 fL (80.0-94.0); MONOCYTES # (AUTO) 0.5 10^3/uL (0.0-1.0); MONOCYTES % (AUTO) 7.5 %; NEUTROPHILS # (AUTO) 4.5 10^3/uL (1.5-6.6); NEUTROPHILS % (AUTO) 75.7 %; PLT - PLATELET COUNT 170 10^3/uL (130-450); RED BLOOD COUNT 4.89 10^6/uL (4.70-6.10); RED CELL DISTRIBUTION WIDTH 11.9 % (12.0-15.0)
[2021-09-06 11:55] LABS: ALBUMIN 4.9 g/dL (3.2-5.5); ALBUMIN/GLOBULIN RATIO 1.7 (1.0-2.2); BILIRUBIN,TOTAL 1.3 mg/dL (0.2-1.0); CALCIUM 9.3 mg/dL (8.5-10.3); CREATININE 0.9 mg/dL (0.6-1.2); POTASSIUM 3.9 mmol/L (3.5-5.0); TOTAL PROTEIN 7.8 g/dL (6.7-8.2)
[2021-09-06] MEDS ORDERED: THIAMINE INJ 100 MG, MAGNESIUM SULFATE 2 GM, MULTIVITAMIN 10 ML in SODIUM CHLORIDE 0.9%... IM ONE (12:40)
--- NOTE | 2021-09-06 12:43 | ED Physician Documentation ---
History of Present Illness - Stated complaint Stated Complaint: TREMMORS,SWEATY,UNEVEN PUPILS - Chief complaint Chief Complaint: Neuro - History obtained from History obtained from: Patient - History of Present Illness Timing: Today - Additonal information Additional information: 81-year-old male who drinks a pint per day has been in to do his workout this morning not feeling well doing it. He felt shaky and lightheaded and his customer service trainer asked him to come to the emergency department for evaluation. Patient states he has felt this way previously with dehydration. He denies any current illness denies any fever cough abdominal pain chest pain or shortness of breath. He states he is uncertain exactly how much he drank yesterday but he does believe he still probably drinks about a pint per day. Review of Systems Constitutional: denies: Fever Eyes: denies: Decreased vision Ears: denies: Ear pain Nose: denies: Congestion Throat: denies: Sore throat Cardiac: denies: Chest pain / pressure, Palpitations Respiratory: denies: Dyspnea, Cough GI: denies: Abdominal Pain, Nausea, Vomiting, Constipation, Diarrhea : denies: Dysuria, Frequency Skin: denies: Rash Musculoskeletal: denies: Neck pain, Back pain Neurologic: denies: Headache, Head injury, LOC, Other (light headed) PD PAST MEDICAL HISTORY - Past Medical History Cardiovascular: Hypertension, Pulmonary embolism Respiratory: None Neuro: None Endocrine/Autoimmune: None GI: GERD, Ulcers, Colon polyps : None HEENT: None Psych: Depression, Anxiety Musculoskeletal: Fatigue, Chronic back pain Derm: None - Past Surgical History Past Surgical History: Yes General: Colonoscopy Ortho: Other HEENT: Tonsil/Adenoidectomy - Present Medications Home Medications: Ambulatory Orders Medication Instructions Recorded Confirmed Sertraline HCl [Zoloft] 100 mg PO BID 11/07/13 07/16/19 Latanoprost 0.005% Ophth Drops 1 drops EACHEYE QPM 06/30/19 07/16/19 [Xalatan Ophth Drops] Hydrocodone/Acetaminophen [Vicodin 1 each PO TID PRN #10 tablet 07/17/19 5-300 mg Tablet] Rivaroxaban [Xarelto] 10 mg PO BIDWM #14 tablet 07/17/19 - Allergies Allergies/Adverse Reactions: Allergies Allergy/AdvReac Type Severity Reaction Status Date / Time No Known Drug Allergies Allergy Verified 09/06/21 11:00 - Social History Does the pt smoke?: No Smoking Status: Never smoker Does the pt drink ETOH?: No Does the pt have substance abuse?: No - Immunizations Immunizations are current?: No - POLST Patient has POLST: No PD ED PE NORMAL - Vitals Vital signs reviewed: Yes (hypertenisve mild ) - General General: Alert and oriented X 3, No acute distress, Well developed/nourished - HEENT HEENT: Atraumatic, PERRL, EOMI - Neck Neck: Supple, no meningeal sign, No bony TTP - Cardiac Cardiac: RRR, No murmur - Respiratory Respiratory: No respiratory distress, Clear bilaterally - Abdomen Abdomen: Normal bowel sounds, Soft, Non tender, Non distended, No organomegaly - Back Back: No CVA TTP, No spinal TTP - Derm Derm: Normal color, Warm and dry, No rash - Extremities Extremities: No deformity, No edema - Neuro Neuro: Alert and oriented X 3, executive relations specialist 2-12 intact, No motor deficit, No sensory deficit, Normal speech Eye Opening: Spontaneous Motor: Obeys Commands Verbal: Oriented GCS Score: 15 - Psych Psych: Normal mood, Normal affect Results - Vitals Vitals: Vital Signs - 24 hr 09/06/21 09/06/21 10:56 12:33 Temperature 36.4 C L Heart Rate 71 75 Respiratory 20 18 Rate Blood Pressure 155/87 H 156/82 H O2 Saturation 98 100 Oxygen O2 Source [] Nasal cannula O2 Source Room air - EKG (time done) 1102 Rate: Rate (enter#) (65) Rhythm: NSR [place]: LAD Compare to prior EKG: Unchanged from prior EKG (SPT 08-14-21 no changes) Computer interpretation: Agree with computer - Labs Labs: Laboratory Tests 09/06/21 09/06/21 09/06/21 11:01 11:07 11:31 WBC 6.0 RBC 4.89 Hgb 16.4 Hct 48.8 MCV 99.8 H MCH 33.5 H MCHC 33.6 RDW 11.9 L Plt Count 170 MPV 9.0 Neut # (Auto) 4.5 Lymph # (Auto) 0.9 L [place] # (Auto) 0.5 Eos # (Auto) 0.1 Baso # (Auto) 0.0 Absolute Nucleated RBC 0.00 Nucleated RBC % 0.0 Sodium 140 Potassium 3.9 Chloride 100 L Carbon Dioxide 28 Anion Gap 12.0 BUN 15 Creatinine 0.9 Estimated GFR (MDRD) 81 L Glucose 100 POC Whole Bld Glucose 101 H Calcium 9.3 Total Bilirubin 1.3 H AST 32 ALT 35 Alkaline Phosphatase 50 Troponin I High Sens Total Protein 7.8 Albumin 4.9 Globulin 2.9 Albumin/Globulin Ratio 1.7 Lipase 33 09/06/21 11:31 WBC RBC Hgb Hct MCV MCH MCHC RDW Plt Count MPV Neut # (Auto) Lymph # (Auto) [place] # (Auto) Eos # (Auto) Baso # (Auto) Absolute Nucleated RBC Nucleated RBC % Sodium Potassium Chloride Carbon Dioxide Anion Gap BUN Creatinine Estimated GFR (MDRD) Glucose POC Whole Bld Glucose Calcium Total Bilirubin AST ALT Alkaline Phosphatase Troponin I High Sens 3.1 Total Protein Albumin Globulin Albumin/Globulin Ratio Lipase Procedures - IVC sono (time) 1235 Bedside IVC sono: IVC measures (cm) (1.12), IVC collapsed c insp (cm) (complete), Dehydration (est 1-2 liter deficit) PD MEDICAL DECISION MAKING - ED course Complexity details: reviewed old records, reviewed results, re-evaluated patient, considered differential, d/w patient ED course: 81-year-old male with chronic alcohol use comes to the emergency department today with chief complaint of feeling lightheaded and 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 He is found to be dehydrated on interrogation the inferior vena cava and a banana bag is administered. He has episode of similar previously with improvement with hydration.. Departure - Departure Disposition: 01 Home, Self Care Clinical Impression: Dehydration Condition: Stable Instructions: ED Dehydration Follow-Up: Zahra King DO [Primary Care Provider] -
[2021-09-06] MEDS ORDERED: THIAMINE INJ 100 MG, MAGNESIUM SULFATE 2 GM, MULTIVITAMIN 10 ML in SODIUM CHLORIDE 0.9%... IV ONE (13:28)
[2021-09-06 14:44] VITALS: BP 156/80
== END 2021-09-06 14:44 | disposition home or self-care (01) ==
LOC: ED 10:46
DX: E86.0 Dehydration (principal)
CPT/HCPCS: 36415; 80053; 83690; 84484; 85025; 93005; 96365; 99283; 99284; J3411

== ENCOUNTER 2021-10-03 10:00 | Emergency (ER) | payer MEDICARE, OTHER ==
--- NOTE | 2021-10-03 12:03 | ED Physician Documentation ---
PD HPI ALTERED MENTAL STATUS - Stated complaint Stated Complaint: W/D SYMPTOMS - Chief complaint Chief Complaint: MHE - History obtained from History obtained from: Patient - History of Present Illness Timing - onset: How many days ago (2-3) Timing - duration: Days (2-3) Timing - details: Gradual onset, Still present (increasing each day. Stopped alcohol 3 days ago and is feeling shaky and nauseated. Has now developed feeling of confused and depressed. General feeling of negative thoughts, that he is going to get more ill. Not suicidal. He does not feel depressed per se. Just feeling of "doom"/withdrawal.) Quality / character: Agitated. No: Hallucinating Associated symptoms: NVD, Other (shakiness/tremor). No: Fever, Headache, Cough Contributing factors: Substance abuse (half-way alcohol use and wanting to stop. Stopped 3 days ago. Had contacted Detox in [place] and has intake interview by phone on Thursday. Feeling worse today though.). No: Diabetic, New medication [place] status: Alert and oriented X 3, Ambulatory Similar symptoms before: Has not had sx before (has had shakiness with stopping alcohol in the past, but not this significant and not with the mood/feeling of anxiety. He does admit to having been drinking higher amounts lately though.) Recently seen: Emergency Dept (twice in past 1 1/2 months for weakness and some confusion, with neg alcohol levels. Presume some element of withdrawal/dehydration. Was not given Rx for withdrawal on those visits. Patient admits to trying to stop drinking few times with symptoms, then resumed alcohol.) Review of Systems Constitutional: denies: Fever, Chills Nose: denies: Rhinorrhea / runny nose, Congestion Throat: denies: Sore throat Respiratory: denies: Cough GI: reports: Nausea, Diarrhea (loose). denies: Abdominal Pain, Vomiting Skin: denies: Rash, Lesions Neurologic: reports: Generalized weakness. denies: Focal weakness, Confused, Headache, Head injury PD PAST MEDICAL HISTORY - Past Medical History Cardiovascular: Hypertension, Pulmonary embolism Respiratory: None Neuro: None Endocrine/Autoimmune: None GI: GERD, Ulcers, Colon polyps : None HEENT: None Psych: Depression, Anxiety Musculoskeletal: Fatigue, Chronic back pain Derm: None - Past Surgical History Past Surgical History: Yes General: Colonoscopy Ortho: Other HEENT: Tonsil/Adenoidectomy - Present Medications Home Medications: Ambulatory Orders Medication Instructions Recorded Confirmed Apixaban [Eliquis] 2.5 mg PO BID 10/03/21 10/03/21 DULoxetine [Cymbalta] 30 mg PO DAILY 10/03/21 10/03/21 Duloxetine HCl [Cymbalta] 60 mg PO DAILY 10/03/21 10/03/21 LORazepam [Ativan] 1 mg PO Q6H PRN #20 tablet 10/03/21 PHENobarbitaL [Phenobarbital] 30 mg PO BID 5 Days #7 tablet 10/03/21 traZODone [Desyrel] 150 mg PO HS 10/03/21 10/03/21 - Allergies Allergies/Adverse Reactions: Allergies Allergy/AdvReac Type Severity Reaction Status Date / Time No Known Drug Allergies Allergy Verified 09/06/21 11:00 - Social History Does the pt smoke?: No Smoking Status: Never smoker Does the pt drink ETOH?: No Does the pt have substance abuse?: No - Immunizations Immunizations are current?: No - POLST Patient has POLST: No PD ED PE NORMAL - Vitals Vital signs reviewed: Yes - General General: Alert and oriented X 3 (pleasant and conversant. ), No acute distress, Well developed/nourished - HEENT HEENT: Pharynx benign - Neck Neck: Supple, no meningeal sign, No adenopathy - Cardiac Cardiac: RRR, No murmur - Respiratory Respiratory: Clear bilaterally - Abdomen Abdomen: Normal bowel sounds, Soft, Non distended, No organomegaly - Back Back: No CVA TTP - Derm Derm: Normal color, Warm and dry - Extremities Extremities: No tenderness to palpate, Normal ROM s pain, No edema, No calf tenderness / cord - Neuro Neuro: Alert and oriented X 3, No motor deficit, Normal speech Results - Vitals Vitals: Vital Signs - 24 hr 10/03/21 10/03/21 10/03/21 10:20 12:10 14:47 Temperature 36.6 C 36.6 C Heart Rate 66 62 75 Respiratory 16 16 16 Rate Blood Pressure 145/78 H 159/84 H 139/75 H O2 Saturation 99 98 99 Oxygen O2 Source [With Activity] Nasal cannula O2 Source Room air - Labs Labs: Laboratory Tests 10/03/21 10/03/21 10/03/21 12:27 12:27 12:27 WBC 5.7 RBC 5.09 Hgb 17.3 Hct 49.9 MCV 98.0 H MCH 34.0 H MCHC 34.7 RDW 12.4 Plt Count 180 MPV 8.7 Neut # (Auto) 4.0 Lymph # (Auto) 1.1 L [place] # (Auto) 0.6 Eos # (Auto) 0.1 Baso # (Auto) 0.0 Absolute Nucleated RBC 0.00 Nucleated RBC % 0.0 Sodium 139 Potassium 4.1 Chloride 100 L Carbon Dioxide 25 Anion Gap 14.0 H BUN 14 Creatinine 0.9 Estimated GFR (MDRD) 81 L Glucose 98 Calcium 9.7 Total Bilirubin 1.4 H AST 43 H ALT 39 Alkaline Phosphatase 54 Total Protein 7.7 Albumin 4.5 Globulin 3.2 Albumin/Globulin Ratio 1.4 Lipase 38 TSH 1.30 Urine Color Urine Clarity Urine pH Ur Specific [place] Urine Protein Urine Glucose (UA) Urine Ketones Urine Occult Blood Urine Nitrite Urine Bilirubin Urine Urobilinogen Ur Leukocyte Esterase Ur Microscopic Review Urine Culture Comments Salicylates < 6.0 Urine Opiates Screen Ur Oxycodone Screen Urine Methadone Screen Ur Propoxyphene Screen Acetaminophen < 10 L Ur Barbiturates Screen Ur Tricyclics Screen Ur Phencyclidine Scrn Ur Amphetamine Screen U Methamphetamines Scrn U Benzodiazepines Scrn Urine Cocaine Screen U Cannabinoids Screen Ethyl Alcohol < 5.0 SARS-CoV-2 (PCR) 10/03/21 10/03/21 12:47 14:22 WBC RBC Hgb Hct MCV MCH MCHC RDW Plt Count MPV Neut # (Auto) Lymph # (Auto) [place] # (Auto) Eos # (Auto) Baso # (Auto) Absolute Nucleated RBC Nucleated RBC % Sodium Potassium Chloride Carbon Dioxide Anion Gap BUN Creatinine Estimated GFR (MDRD) Glucose Calcium Total Bilirubin AST ALT Alkaline Phosphatase Total Protein Albumin Globulin Albumin/Globulin Ratio Lipase TSH Urine Color DARK YELLOW Urine Clarity CLEAR Urine pH 6.5 Ur Specific [place] 1.025 Urine Protein TRACE Urine Glucose (UA) NEGATIVE Urine Ketones 15 H Urine Occult Blood NEGATIVE Urine Nitrite NEGATIVE Urine Bilirubin NEGATIVE Urine Urobilinogen 1 (NORMAL) Ur Leukocyte Esterase NEGATIVE Ur Microscopic Review NOT INDICATED Urine Culture Comments NOT INDICATED Salicylates Urine Opiates Screen NEGATIVE Ur Oxycodone Screen NEGATIVE Urine Methadone Screen NEGATIVE Ur Propoxyphene Screen NEGATIVE Acetaminophen Ur Barbiturates Screen POSITIVE H Ur Tricyclics Screen NEGATIVE Ur Phencyclidine Scrn NEGATIVE Ur Amphetamine Screen NEGATIVE U Methamphetamines Scrn NEGATIVE U Benzodiazepines Scrn NEGATIVE Urine Cocaine Screen NEGATIVE U Cannabinoids Screen NEGATIVE Ethyl Alcohol SARS-CoV-2 (PCR) NOT DETECTED PD MEDICAL DECISION MAKING - ED course Complexity details: reviewed old records (ED visits 08/14 and 09/06.), reviewed results (labs good> COVID screening done in anticipation of acceptance to Detox facility today.), re-evaluated patient (he is feeling much better with meds here in ED. Not nauseated nor shaky right now. COherent and feels clear thought process. ), considered differential (c/w alcohol withdrawal. ), d/w patient, d/w residential solar consultant (Social Work was able to find detox for him off [address] in [place] with likely bed available today pending screening. However patient wanting to a wait screening for [place] facility Thursday. Prefers home with meds. ) Departure - Departure Disposition: , Self Care Clinical Impression: Alcohol withdrawal Qualifiers: Complication of substance-induced condition: uncomplicated Qualified Code(s): F10.230 - Alcohol dependence with withdrawal, uncomplicated Condition: Stable Instructions: ED Withdrawal Alcohol Follow-Up: Zahra King DO [Primary Care Provider] - Prescriptions: LORazepam [Ativan] 1 mg PO Q6H PRN #20 tablet PRN Reason: Alcohol Withdrawal PHENobarbitaL [Phenobarbital] 30 mg PO BID 5 Days #7 tablet Comments: Stay well-hydrated and regular diet. Avoid alcohol. For your withdrawal symptoms, use the phenobarbital twice daily for the next 2 days and then once daily for 3 days after that. If you still have withdrawal symptoms beyond that, use lorazepam every 6-8 hours if needed. Try to taper down the amount needed over the next several days. Talk with the detox program Thursday as scheduled for intake and see if they have bed availability. Return to the ER if worsening symptoms despite the above medications. Good luck with your stopping alcohol. It would also be useful to get social support such as AA meetings or counseling etc. I transmitted your prescription to [facility] in [place]. Discharge Date/Time: 10/03/21 14:49
[2021-10-03] MEDS ORDERED: SODIUM CHLORIDE 0.9% 1,000 ML IV STA (12:19)
[2021-10-03] MEDS ORDERED: DROPERIDOL 5 MG/2 ML VIAL IVP STA (12:19)
[2021-10-03] MEDS ORDERED: LORazepam 2 MG/ML VIAL IVP STA (12:19)
[2021-10-03 12:35] LABS: BASOPHILS % (AUTO) 0.3 %; EOSINOPHILS # (AUTO) 0.1 10^3/uL (0.0-0.7); HCT - HEMATOCRIT 49.9 % (42.0-52.0); HGB - HEMOGLOBIN 17.3 g/dL (14.0-18.0); LYMPHOCYTES # (AUTO) 1.1 10^3/uL (1.5-3.5); LYMPHOCYTES % (AUTO) 18.8 %; MEAN CORPUSCULAR HGB CONC 34.7 g/dL (32.0-36.0); MEAN PLATELET VOLUME 8.7 fL (7.4-11.4); MONOCYTES # (AUTO) 0.6 10^3/uL (0.0-1.0); MONOCYTES % (AUTO) 9.6 %; PLT - PLATELET COUNT 180 10^3/uL (130-450); RED BLOOD COUNT 5.09 10^6/uL (4.70-6.10); RED CELL DISTRIBUTION WIDTH 12.4 % (12.0-15.0); WHITE BLOOD COUNT 5.7 x10^3/uL (4.8-10.8)
[2021-10-03 12:48] LABS: ACETAMINOPHEN < 10 ug/mL (10-30); ALBUMIN 4.5 g/dL (3.2-5.5); ALBUMIN/GLOBULIN RATIO 1.4 (1.0-2.2); ALKALINE PHOSPHATASE 54 IU/L (42-121); ALT ALANINE AMINOTRANSFERASE 39 IU/L (10-60); AST ASPARTATE AMINOTRANSFERASE 43 IU/L (10-42); BILIRUBIN,TOTAL 1.4 mg/dL (0.2-1.0); BUN - BLOOD UREA NITROGEN 14 mg/dL (6-20); CALCIUM 9.7 mg/dL (8.5-10.3); CARBON DIOXIDE - CO2 25 mmol/L (21-32); CHLORIDE 100 mmol/L (101-111); CREATININE 0.9 mg/dL (0.6-1.2); ETOH - ETHANOL < 5.0 mg/dL; GFR - MDRD 81 (>89); GLUCOSE 98 mg/dL (70-100); LIPASE 38 U/L (22-51); POTASSIUM 4.1 mmol/L (3.5-5.0); SALICYLATE < 6.0 mg/dL; SODIUM 139 mmol/L (135-145); TOTAL PROTEIN 7.7 g/dL (6.7-8.2)
[2021-10-03] MEDS ORDERED: PHENobarbital 65 MG/ML VIAL IV STA (13:09)
[2021-10-03 14:29] LABS: MUDS CUTOFF CONCENTRATIONS CUTOFF CONC BELOW:
[2021-10-03 14:32] LABS: BILIRUBIN,URINE NEGATIVE (NEGATIVE); GLUCOSE, URINE (UA) NEGATIVE (NEGATIVE); KETONES,URINE (UA) 15 mg/dL (NEGATIVE); LEUKOCYTE ESTERASE, URINE NEGATIVE (NEGATIVE); NITRITE,URINE NEGATIVE (NEGATIVE); OCCULT BLOOD,URINE NEGATIVE (NEGATIVE); PH,URINE 6.5 PH (5.0-7.5); PROTEIN,URINE TRACE mg/dL (NEGATIVE); UROBILINOGEN,URINE 1 (NORMAL) E.U./dL (NORMAL)
[2021-10-03 14:33] LABS: CLARITY,URINE CLEAR (CLEAR)
[2021-10-03 14:42] LABS: AMPHETAMINE SCREEN,URINE NEGATIVE (NEGATIVE); BARBITURATE SCREEN,UR POSITIVE (NEGATIVE); BENZODIAZEPINES SCREEN, URINE NEGATIVE (NEGATIVE); COCAINE SCREEN URINE NEGATIVE (NEGATIVE); METHADONE SCREEN, URINE NEGATIVE (NEGATIVE); METHAMPHETAMINES SCREEN, URINE NEGATIVE (NEGATIVE); OPIATE SCREEN, URINE NEGATIVE (NEGATIVE); OXYCODONE SCREEN, URINE NEGATIVE (NEGATIVE); PROPOXYPHENE SCREEN, URINE NEGATIVE (NEGATIVE); THC CANNABINOID SCREEN, URINE NEGATIVE (NEGATIVE); TRICYCLIC ANTIDEPRESSANT,URINE NEGATIVE (NEGATIVE)
[2021-10-03 14:49] VITALS: BP 139/75
== END 2021-10-03 14:49 | disposition home or self-care (01) ==
LOC: ED 10:00
DX: F10.230 Alcohol dependence with withdrawal, uncomplicated (principal); I10 Essential (primary) hypertension; K21.9 Gastro-esophageal reflux disease without esophagitis; F32.9 Major depressive disorder, single episode, unspecified; F41.9 Anxiety disorder, unspecified; R53.83 Other fatigue; Z20.822 Contact with and (suspected) exposure to COVID-19; Z86.711 Personal history of pulmonary embolism; Z79.01 Long term (current) use of anticoagulants; Z79.899 Other long term (current) drug therapy
CPT/HCPCS: 36415; 80053; 80306; 80307; 81003; 83690; 84443; 85025; 87635; 96374; 96375; 99283; 99284; G0480; J2060; 80320; 80329; 81001; 87086

== ENCOUNTER 2022-08-13 07:37 | Outpatient (CLI) | payer MEDICARE, OTHER ==
[2022-08-13 12:28] LABS: THYROID STIMULATING HORMONE 2.51 uIU/mL (0.34-5.60)
[2022-08-13 12:30] LABS: FREE T3 3.26 pg/mL (2.5-3.9); FREE T4 (FREE THYROXINE) 0.69 ng/dL (0.58-1.64)
[2022-08-13 12:52] LABS: ALBUMIN 4.7 g/dL (3.2-5.5); ALBUMIN/GLOBULIN RATIO 1.7 (1.0-2.2); BILIRUBIN,TOTAL 0.8 mg/dL (0.2-1.0); CALCIUM 9.4 mg/dL (8.5-10.3); POTASSIUM 4.2 mmol/L (3.5-5.0); TOTAL PROTEIN 7.5 g/dL (6.7-8.2)
== END 2022-08-13 07:38 | disposition home or self-care (01) ==
LOC: LAB.N 07:37
PROVIDERS: ATTEND Naturopath
DX: R53.83 Other fatigue (principal); K29.70 Gastritis, unspecified, without bleeding
CPT/HCPCS: 36415; 80053; 82306; 84403; 84439; 84443; 84481

== ENCOUNTER 2022-10-06 08:00 | Outpatient (CLI) | payer MEDICARE, OTHER ==
--- NOTE | 2022-10-07 10:41 | XRAY Report ---
PROCEDURE: Chest 2 View X-Ray INDICATIONS: URI TECHNIQUE: 2 views of the chest were acquired. COMPARISON: 03/06/2017 FINDINGS: Surgical changes and devices: None. Lungs and pleura: No pleural effusions or pneumothorax. Lungs are clear. Mediastinum: Mediastinal contours are normal. Heart size is normal. Bones and chest wall: No suspicious bony abnormalities. Soft tissues appear unremarkable. Old heal ed right-sided rib fracture IMPRESSION: No acute cardiopulmonary findings Reviewed by: Portillo Wright MD on 10/07/2022 9:40 AM [facility] Approved by: Portillo Wright MD on 10/07/2022 9:40 AM [facility] Station ID: [id number]
== END 2022-10-06 23:59 | disposition home or self-care (01) ==
LOC: DI.N 08:00
PROVIDERS: ATTEND Registered Nurse
DX: J06.9 Acute upper respiratory infection, unspecified (principal)

== ENCOUNTER 2022-12-16 07:25 | Outpatient (CLI) | payer MEDICARE, OTHER ==
[2022-12-16 11:58] LABS: BASOPHILS % (AUTO) 0.5 %; EOSINOPHILS # (AUTO) 0.2 10^3/uL (0.0-0.7); EOSINOPHILS % (AUTO) 4.6 %; HCT - HEMATOCRIT 44.8 % (42.0-52.0); HGB - HEMOGLOBIN 14.9 g/dL (14.0-18.0); LYMPHOCYTES # (AUTO) 1.7 10^3/uL (1.5-3.5); LYMPHOCYTES % (AUTO) 40.5 %; MEAN CORPUSCULAR HEMOGLOBIN 31.1 pg (27.0-31.0); MEAN CORPUSCULAR HGB CONC 33.3 g/dL (32.0-36.0); MEAN CORPUSCULAR VOLUME 93.5 fL (80.0-94.0); MEAN PLATELET VOLUME 10.9 fL (7.4-11.4); MONOCYTES # (AUTO) 0.3 10^3/uL (0.0-1.0); MONOCYTES % (AUTO) 6.3 %; NEUTROPHILS % (AUTO) 47.9 %; PLT - PLATELET COUNT 179 10^3/uL (130-450); RED BLOOD COUNT 4.79 10^6/uL (4.70-6.10); RED CELL DISTRIBUTION WIDTH 12.8 % (12.0-15.0); WHITE BLOOD COUNT 4.1 x10^3/uL (4.8-10.8)
[2022-12-16 12:07] LABS: ALBUMIN 4.3 g/dL (3.2-5.5); ALBUMIN/GLOBULIN RATIO 1.3 (1.0-2.2); BILIRUBIN,TOTAL 0.8 mg/dL (0.2-1.0); CALCIUM 9.3 mg/dL (8.5-10.3); CREATININE 0.9 mg/dL (0.6-1.2); POTASSIUM 4.4 mmol/L (3.5-5.0); TOTAL PROTEIN 7.5 g/dL (6.7-8.2)
== END 2022-12-16 07:26 | disposition home or self-care (01) ==
LOC: LAB.N 07:25
PROVIDERS: ATTEND Family Medicine
DX: G47.9 Sleep disorder, unspecified (principal)
CPT/HCPCS: 36415; 80053; 84153; 84403; 85025

== ENCOUNTER 2023-01-13 07:28 | Outpatient (CLI) | payer MEDICARE, OTHER ==
[2023-01-13 12:42] LABS: ALBUMIN 4.5 g/dL (3.2-5.5); ALBUMIN/GLOBULIN RATIO 1.5 (1.0-2.2); BILIRUBIN,TOTAL 0.8 mg/dL (0.2-1.0); CALCIUM 9.3 mg/dL (8.5-10.3); CREATININE 1.1 mg/dL (0.6-1.2); POTASSIUM 4.2 mmol/L (3.5-5.0); TOTAL PROTEIN 7.6 g/dL (6.7-8.2)
[2023-01-13 12:44] LABS: BASOPHILS % (AUTO) 0.6 %; EOSINOPHILS # (AUTO) 0.3 10^3/uL (0.0-0.7); EOSINOPHILS % (AUTO) 5.5 %; HGB - HEMOGLOBIN 15.1 g/dL (14.0-18.0); LYMPHOCYTES % (AUTO) 38.1 %; MEAN CORPUSCULAR HEMOGLOBIN 31.1 pg (27.0-31.0); MEAN CORPUSCULAR HGB CONC 32.8 g/dL (32.0-36.0); MEAN CORPUSCULAR VOLUME 94.7 fL (80.0-94.0); MEAN PLATELET VOLUME 10.9 fL (7.4-11.4); MONOCYTES # (AUTO) 0.3 10^3/uL (0.0-1.0); MONOCYTES % (AUTO) 5.9 %; NEUTROPHILS # (AUTO) 2.6 10^3/uL (1.5-6.6); NEUTROPHILS % (AUTO) 49.7 %; PLT - PLATELET COUNT 193 10^3/uL (130-450); RED BLOOD COUNT 4.86 10^6/uL (4.70-6.10); RED CELL DISTRIBUTION WIDTH 13.2 % (12.0-15.0); WHITE BLOOD COUNT 5.3 x10^3/uL (4.8-10.8)
[2023-01-14 21:07] LABS: FREE TESTOSTERONE(DIRECT) 17.2 pg/mL (6.6-18.1)
== END 2023-01-13 07:29 | disposition home or self-care (01) ==
LOC: LAB.N 07:28
PROVIDERS: ATTEND Naturopath
DX: Z00.00 Encounter for general adult medical examination without abnormal findings (principal); R68.82 Decreased libido; M99.05 Segmental and somatic dysfunction of pelvic region; N41.1 Chronic prostatitis
CPT/HCPCS: 36415; 80053; 84153; 84402; 84403; 85025

== ENCOUNTER 2023-04-30 07:06 | Outpatient (CLI) | payer MEDICARE, OTHER ==
[2023-04-30 11:42] LABS: BASOPHILS % (AUTO) 0.4 %; EOSINOPHILS # (AUTO) 0.2 10^3/uL (0.0-0.7); EOSINOPHILS % (AUTO) 3.7 %; HCT - HEMATOCRIT 45.2 % (42.0-52.0); HGB - HEMOGLOBIN 14.2 g/dL (14.0-18.0); LYMPHOCYTES # (AUTO) 1.8 10^3/uL (1.5-3.5); LYMPHOCYTES % (AUTO) 35.7 %; MEAN CORPUSCULAR HEMOGLOBIN 29.6 pg (27.0-31.0); MEAN CORPUSCULAR HGB CONC 31.4 g/dL (32.0-36.0); MEAN CORPUSCULAR VOLUME 94.4 fL (80.0-94.0); MEAN PLATELET VOLUME 11.4 fL (7.4-11.4); MONOCYTES # (AUTO) 0.3 10^3/uL (0.0-1.0); MONOCYTES % (AUTO) 6.3 %; NEUTROPHILS # (AUTO) 2.7 10^3/uL (1.5-6.6); NEUTROPHILS % (AUTO) 53.7 %; PLT - PLATELET COUNT 163 10^3/uL (130-450); RED BLOOD COUNT 4.79 10^6/uL (4.70-6.10); RED CELL DISTRIBUTION WIDTH 12.7 % (12.0-15.0); WHITE BLOOD COUNT 5.1 x10^3/uL (4.8-10.8)
[2023-05-01 19:07] LABS: FREE TESTOSTERONE(DIRECT) 12.8 pg/mL (6.6-18.1)
== END 2023-04-30 07:07 | disposition home or self-care (01) ==
LOC: LAB.N 07:06
PROVIDERS: ATTEND Naturopath
DX: Z00.00 Encounter for general adult medical examination without abnormal findings (principal); R68.82 Decreased libido
CPT/HCPCS: 36415; 84402; 84403; 85025

== ENCOUNTER 2023-09-24 07:07 | Outpatient (CLI) | payer MEDICARE, OTHER ==
[2023-09-24 11:40] LABS: BASOPHILS % (AUTO) 0.2 %; EOSINOPHILS # (AUTO) 0.2 10^3/uL (0.0-0.7); EOSINOPHILS % (AUTO) 4.2 %; HCT - HEMATOCRIT 46.4 % (42.0-52.0); HGB - HEMOGLOBIN 15.1 g/dL (14.0-18.0); LYMPHOCYTES # (AUTO) 1.3 10^3/uL (1.5-3.5); LYMPHOCYTES % (AUTO) 28.6 %; MEAN CORPUSCULAR HEMOGLOBIN 30.9 pg (27.0-31.0); MEAN CORPUSCULAR HGB CONC 32.5 g/dL (32.0-36.0); MEAN CORPUSCULAR VOLUME 94.9 fL (80.0-94.0); MEAN PLATELET VOLUME 10.6 fL (7.4-11.4); MONOCYTES # (AUTO) 0.3 10^3/uL (0.0-1.0); MONOCYTES % (AUTO) 7.6 %; NEUTROPHILS # (AUTO) 2.6 10^3/uL (1.5-6.6); PLT - PLATELET COUNT 177 10^3/uL (130-450); RED BLOOD COUNT 4.89 10^6/uL (4.70-6.10); RED CELL DISTRIBUTION WIDTH 12.8 % (12.0-15.0); WHITE BLOOD COUNT 4.5 x10^3/uL (4.8-10.8)
[2023-09-24 11:54] LABS: ALBUMIN 4.5 g/dL (3.2-5.5); ALBUMIN/GLOBULIN RATIO 1.7 (1.0-2.2); ALKALINE PHOSPHATASE 44 IU/L (42-121); ALT ALANINE AMINOTRANSFERASE 20 IU/L (10-60); AST ASPARTATE AMINOTRANSFERASE 17 IU/L (10-42); BILIRUBIN,TOTAL 0.4 mg/dL (0.2-1.0); BUN - BLOOD UREA NITROGEN 21 mg/dL (6-20); CALCIUM 9.2 mg/dL (8.5-10.3); CARBON DIOXIDE - CO2 29 mmol/L (21-32); CHLORIDE 107 mmol/L (101-111); CHOL/HDL RATIO 6.2 (<5.0); CHOLESTEROL 197 mg/dL; CRP HIGH SENSITIVITY 1.68 mg/L; GFR - MDRD 72 (>89); GLUCOSE 103 mg/dL (74-104); HDL CHOLESTEROL 32 mg/dL; LDL CHOLESTEROL,CALCULATED 133 mg/dL; LDL/HDL RATIO 4.2 (<3.6); POTASSIUM 4.1 mmol/L (3.5-4.5); SODIUM 140 mmol/L (135-145); TOTAL PROTEIN 7.1 g/dL (6.4-8.9); TRIGLYCERIDES 158 mg/dL (48-352); VLDL CHOLESTEROL 32 mg/dL
[2023-09-24 14:27] LABS: ESTIMATED AVERAGE GLUCOSE 111 mg/dL (70-100); HEMOGLOBIN A1c% 5.5 % (4.27-6.07)
== END 2023-09-24 07:08 | disposition home or self-care (01) ==
LOC: LAB.N 07:07
PROVIDERS: ATTEND Physician Assistant
DX: Z00.00 Encounter for general adult medical examination without abnormal findings (principal); E78.00 Pure hypercholesterolemia, unspecified; R53.83 Other fatigue; R53.1 Weakness; Z79.890 Hormone replacement therapy
CPT/HCPCS: 36415; 80053; 80061; 82607; 82746; 83036; 83721; 84153; 84402; 84425; 84443; 85025; 86141

== ENCOUNTER → 2023-11-07 | Outpatient (CLI) | payer MEDICARE, OTHER | LOC: LAB.N 08:00 | PROVIDERS: ATTEND Physician Assistant Medical | DX: B34.9 Viral infection, unspecified (principal) ==

== ENCOUNTER 2024-02-03 08:00 | Outpatient (CLI) | payer MEDICARE, OTHER | END 2024-02-03 08:01 | disposition home or self-care (01) | LOC: LAB.N 08:00 | PROVIDERS: ATTEND Physician Assistant Medical | DX: R41.0 Disorientation, unspecified (principal) | CPT/HCPCS: 82962 ==

== ENCOUNTER 2024-02-03 14:34 | Outpatient (CLI) | payer MEDICARE, OTHER | END 2024-02-03 23:59 | disposition critical access hospital (66) | LOC: EMS 14:34 | DX: R25.1 Tremor, unspecified (principal); R68.89 Other general symptoms and signs; R47.89 Other speech disturbances; R41.0 Disorientation, unspecified; R53.81 Other malaise; F10.90 Alcohol use, unspecified, uncomplicated | CPT/HCPCS: A0425; A0429 ==

== ENCOUNTER 2024-02-03 14:56 | Emergency (ER) | payer MEDICARE, OTHER ==
[2024-02-03 15:42] LABS: BASOPHILS % (AUTO) 0.2 %; EOSINOPHILS % (AUTO) 0.5 %; HCT - HEMATOCRIT 46.3 % (42.0-52.0); HGB - HEMOGLOBIN 15.5 g/dL (14.0-18.0); LYMPHOCYTES # (AUTO) 1.1 10^3/uL (1.5-3.5); MEAN CORPUSCULAR HEMOGLOBIN 32.3 pg (27.0-31.0); MEAN CORPUSCULAR HGB CONC 33.5 g/dL (32.0-36.0); MEAN CORPUSCULAR VOLUME 96.5 fL (80.0-94.0); MEAN PLATELET VOLUME 9.6 fL (7.4-11.4); MONOCYTES # (AUTO) 0.8 10^3/uL (0.0-1.0); MONOCYTES % (AUTO) 14.3 %; NEUTROPHILS # (AUTO) 3.8 10^3/uL (1.5-6.6); NEUTROPHILS % (AUTO) 65.7 %; PLT - PLATELET COUNT 189 10^3/uL (130-450); RED CELL DISTRIBUTION WIDTH 13.4 % (12.0-15.0); WHITE BLOOD COUNT 5.8 x10^3/uL (4.8-10.8)
[2024-02-03 15:51] LABS: BILIRUBIN,URINE NEGATIVE (NEGATIVE); GLUCOSE, URINE (UA) NEGATIVE (NEGATIVE); KETONES,URINE (UA) TRACE mg/dL (NEGATIVE); LEUKOCYTE ESTERASE, URINE NEGATIVE (NEGATIVE); NITRITE,URINE NEGATIVE (NEGATIVE); OCCULT BLOOD,URINE NEGATIVE (NEGATIVE); PROTEIN,URINE 30 mg/dL (NEGATIVE); UROBILINOGEN,URINE 0.2 (NORMAL) E.U./dL (NORMAL)
[2024-02-03 15:52] LABS: CLARITY,URINE CLEAR (CLEAR)
[2024-02-03 15:58] LABS: ALBUMIN 4.7 g/dL (3.2-5.5); ALBUMIN/GLOBULIN RATIO 1.8 (1.0-2.2); BILIRUBIN,TOTAL 0.6 mg/dL (0.2-1.0); CALCIUM 10.2 mg/dL (8.5-10.3); CREATININE 0.9 mg/dL (0.6-1.3); MAGNESIUM 2.2 mg/dL (1.7-2.3); POTASSIUM 4.1 mmol/L (3.5-4.5); TOTAL PROTEIN 7.3 g/dL (6.4-8.9)
--- NOTE | 2024-02-03 16:07 | CT Report ---
PROCEDURE: Head WO INDICATIONS: confusion TECHNIQUE: Noncontrast 4.5 mm thick angled axial sections acquired from the foramen magnum to the vertex. For r adiation dose reduction, the following was used: automated exposure control, adjustment of mA and/or kV according to patient size. COMPARISON: 11/07/2013. FINDINGS: Image quality: Excellent. CSF spaces: Basal cisterns are patent. No extra-axial fluid collections. Ventricles are normal in size and shape. Brain: No midline shift. No intracranial masses or hemorrhage. Ray-white matter interface is norm al. Intracranial carotid calcifications. Age-related volume loss and small vessel ischemic change. Skull and face: Calvarium and visualized facial bones are intact, without suspicious lesions. Sinuses: Extensive changes of chronic sinusitis involving the ethmoids and sphenoid sinuses, as well as maxillary sinuses. Remote bilateral medial nasal antral windows. Partial ethmoidectomies. No air-f luid levels. IMPRESSION: No acute intracranial pathology. Age-related volume loss and small vessel ischemic change. Extensive chronic sinus disease, previous paranasal sinus surgery. Reviewed by: Kieran Butterfield MD on 02/03/2024 4:06 PM PDT Approved by: Kieran Butterfield MD on 02/03/2024 4:06 PM PDT Station ID: [id number]
[2024-02-03 16:11] LABS: THYROID STIMULATING HORMONE 1.32 uIU/mL (0.34-5.60)
[2024-02-03 16:13] LABS: BACTERIA,URINE None Seen /HPF (None Seen); MUCUS,URINE Few Strands; RBC,URINE 0-5 /HPF (0-5); SQUAMOUS EPITHELIAL CELL,UR RARE Squamous (<= Few); WBC,URINE 0-3 /HPF (0-3)
--- NOTE | 2024-02-03 16:13 | ED Physician Documentation ---
History of Present Illness - Stated complaint Stated Complaint: CONFUSION - Chief complaint Chief Complaint: General - Additonal information Additional information: 83-year-old male presents emergency department for increased confusion. Patient originally went to urgent care who sent him here to the emergency department for further evaluation because of his Episode of confusion that he experienced last night. Patient says yesterday he was feeling overall fatigued and feeling warm throughout the day but he said there is about 15 episode of "extreme hotness" and confusion. Patient said that he has made was worried that maybe he had a stroke but he did not want to come to the emergency department yesterday. Today he went to urgent care for further evaluation. Today he says that he feels like he is having multiple episodes of hot flashes where he feels very very warm and sweaty and then symptoms resolved. No chest pain no shortness of breath he has had no recent trauma to the head patient said yesterday during this hot flash episode that he experienced he had some confusion he did not know where he was he was convinced it was the evenings time instead of the morning. He is alert and oriented x 4 from myself right now without any evidence of confusion. PD PAST MEDICAL HISTORY - Past Medical History Past Medical History: Yes Cardiovascular: Hypertension, Pulmonary embolism Respiratory: None Neuro: None Endocrine/Autoimmune: None GI: GERD, Ulcers, Colon polyps : None HEENT: None Psych: Depression, Anxiety Musculoskeletal: Fatigue, Chronic back pain Derm: None - Past Surgical History Past Surgical History: Yes General: Colonoscopy Ortho: Other HEENT: Tonsil/Adenoidectomy - Present Medications Home Medications: Ambulatory Orders Medication Instructions Recorded Confirmed Apixaban [Eliquis] 2.5 mg PO BID 10/03/21 02/03/24 DULoxetine [Cymbalta] 30 mg PO DAILY 10/03/21 02/03/24 Duloxetine HCl [Cymbalta] 60 mg PO DAILY 10/03/21 02/03/24 traZODone [Desyrel] 150 mg PO HS 10/03/21 02/03/24 Atorvastatin [Lipitor] 20 mg PO QPM 02/03/24 02/03/24 Latanoprost 0.005% Ophth Drops 1 drops OPTH QPM 02/03/24 02/03/24 [Xalatan Ophth Drops] Methyltestosterone [Methitest] 10 mg PO DAILY 02/03/24 02/03/24 Mirtazapine [Remeron] 15 mg PO HS 02/03/24 02/03/24 Oseltamivir [Tamiflu] 75 mg PO BID #9 cap 02/03/24 - Allergies Allergies/Adverse Reactions: Allergies Allergy/AdvReac Type Severity Reaction Status Date / Time No Known Drug Allergies Allergy Verified 09/06/21 11:00 - Social History Does the pt smoke?: No Smoking Status: Never smoker Does the pt drink ETOH?: No Does the pt have substance abuse?: No - Immunizations Immunizations are current?: No - POLST Patient has POLST: No PD ED PE NORMAL - Vitals Vital signs reviewed: Yes - General General: Alert and oriented X 3, No acute distress, Well developed/nourished - HEENT HEENT: Atraumatic, PERRL, EOMI, Moist mucous membranes - Neck Neck: Supple, no meningeal sign, No JVD - Cardiac Cardiac: RRR, No murmur, No gallop, Strong equal pulses - Respiratory Respiratory: No respiratory distress, Clear bilaterally - Abdomen Abdomen: Normal bowel sounds - Derm Derm: Normal color, Warm and dry, No rash - Extremities Extremities: No deformity, No edema, No calf tenderness / cord - Neuro Neuro: Alert and oriented X 3, code enforcement inspector 2-12 intact, No motor deficit, No sensory deficit, Normal speech Eye Opening: Spontaneous Motor: Obeys Commands Verbal: Oriented GCS Score: 15 - Psych Psych: Normal mood, Normal affect Results - Vitals Vitals: Vital Signs - 24 hr 02/03/24 02/03/24 02/03/24 15:04 16:20 18:05 Temperature 36.7 C 37.0 C Heart Rate 88 89 69 Respiratory 14 20 18 Rate Blood Pressure 136/85 H 146/75 H O2 Saturation 95 95 100 Oxygen O2 Source [With Activity] Nasal cannula O2 Source Room air - EKG (time done) 1505 EKG releavant findings:: EKG personally interpreted by author of this note. Relevant findings are: Rate: Rate (enter#) (89) Rhythm: NSR [place]: LAD QRS: Normal Ischemia: Normal ST segments Other comments: Other comments (supraventricular bigemony) Computer interpretation: Agree with computer - Labs Labs: Laboratory Tests 02/03/24 02/03/24 02/03/24 15:35 15:35 15:38 WBC 5.8 RBC 4.80 Hgb 15.5 Hct 46.3 MCV 96.5 H MCH 32.3 H MCHC 33.5 RDW 13.4 Plt Count 189 MPV 9.6 Neut # (Auto) 3.8 Lymph # (Auto) 1.1 L [place] # (Auto) 0.8 Eos # (Auto) 0.0 Baso # (Auto) 0.0 Absolute Nucleated RBC 0.00 Nucleated RBC % 0.0 Sodium 139 Potassium 4.1 Chloride 102 Carbon Dioxide 30 Anion Gap 7.0 BUN 29 H Creatinine 0.9 Estimated GFR (MDRD) 81 L Glucose 78 Calcium 10.2 Magnesium 2.2 Total Bilirubin 0.6 AST 24 ALT 28 Alkaline Phosphatase 43 Total Protein 7.3 Albumin 4.7 Globulin 2.6 Albumin/Globulin Ratio 1.8 Lipase 30 TSH 1.32 Urine Color Urine Clarity Urine pH Ur Specific [place] Urine Protein Urine Glucose (UA) Urine Ketones Urine Occult Blood Urine Nitrite Urine Bilirubin Urine Urobilinogen Ur Leukocyte Esterase Urine RBC Urine WBC Ur Squamous Epith Cells Urine Bacteria Urine Mucus Ur Microscopic Review Urine Culture Comments Nasal Adenovirus (PCR) NOT DETECTED Nasal B. parapertussis DNA (PCR) NOT DETECTED Nasal Coronavir 229E PCR DETECTED A Nasal Coronavir HKU1 PCR NOT DETECTED Nasal Coronavir NL63 PCR NOT DETECTED Nasal Coronavir OC43 PCR NOT DETECTED Nasal Enterovir/Rhinovir PCR NOT DETECTED Nasal Influenza B PCR NOT DETECTED Nasal Influenza A PCR NOT DETECTED Nasal Parainfluen 1 PCR NOT DETECTED Nasal Parainfluen 2 PCR NOT DETECTED Nasal Parainfluen 3 PCR NOT DETECTED Nasal Parainfluen 4 PCR NOT DETECTED Nasal RSV (PCR) NOT DETECTED Nasal B.pertussis DNA PCR NOT DETECTED Nasal C.pneumoniae (PCR) NOT DETECTED Nitish Human Metapneumo PCR NOT DETECTED Nasal M.pneumoniae (PCR) NOT DETECTED Nasal SARS-CoV-2 (PCR) NOT DETECTED 02/03/24 15:40 WBC RBC Hgb Hct MCV MCH MCHC RDW Plt Count MPV Neut # (Auto) Lymph # (Auto) [place] # (Auto) Eos # (Auto) Baso # (Auto) Absolute Nucleated RBC Nucleated RBC % Sodium Potassium Chloride Carbon Dioxide Anion Gap BUN Creatinine Estimated GFR (MDRD) Glucose Calcium Magnesium Total Bilirubin AST ALT Alkaline Phosphatase Total Protein Albumin Globulin Albumin/Globulin Ratio Lipase TSH Urine Color YELLOW Urine Clarity CLEAR Urine pH 6.0 Ur Specific [place] 1.025 Urine Protein 30 H Urine Glucose (UA) NEGATIVE Urine Ketones TRACE Urine Occult Blood NEGATIVE Urine Nitrite NEGATIVE Urine Bilirubin NEGATIVE Urine Urobilinogen 0.2 (NORMAL) Ur Leukocyte Esterase NEGATIVE Urine RBC 0-5 Urine WBC 0-3 Ur Squamous Epith Cells RARE Squamous Urine Bacteria None Seen Urine Mucus Few Strands Ur Microscopic Review INDICATED Urine Culture Comments NOT INDICATED Nasal Adenovirus (PCR) Nasal B. parapertussis DNA (PCR) Nasal Coronavir 229E PCR Nasal Coronavir HKU1 PCR Nasal Coronavir NL63 PCR Nasal Coronavir OC43 PCR Nasal Enterovir/Rhinovir PCR Nasal Influenza B PCR Nasal Influenza A PCR Nasal Parainfluen 1 PCR Nasal Parainfluen 2 PCR Nasal Parainfluen 3 PCR Nasal Parainfluen 4 PCR Nasal RSV (PCR) Nasal B.pertussis DNA PCR Nasal C.pneumoniae (PCR) Nitish Human Metapneumo PCR Nasal M.pneumoniae (PCR) Nasal SARS-CoV-2 (PCR) - Rads (name of study) head ct w/o Relevant Findings:: Final report received, EMP independent interpretation of test, Other (No acute intracranial abnormalities. Age-related volume loss with small vessel ischemic changes) PD Medical Decision Making - ED course ED course: 83-year-old male presents emergency department for episode of confusion and episodes of hot flashes. Patient has no focal neurological deficits making me less suspicious that this being related to a stroke. At this point in time he is alert and oriented x 4 and does not exhibit any confusion for me. Labs are complete he has no leukocytosis no significant electrolyte abnormalities, creatinine 0.9, BUN 29, GFR 81 urine is unremarkable. Patient did test positive for coronavirus because of his age as well as comorbidities and when had started him on Tamiflu and a prescription of Tamiflu was sent to his preferred pharmacy on file. Patient also given some IV fluids prior to discharge. CT head was complete for ongoing further investigation and it was found to be overall unremarkable, no acute intracranial pathology, age-related volume loss and small vessel ischemic changes, extensive chronic sinus disease although previous Nasal sinus surgery as noted. Patient said that he will follow-up with his primary care provider outpatient for further evaluation he is safe for discharge at this time his labs remained stable his vitals remained stable there is no further workup indicated return precautions given Departure - Departure Disposition: 01 Home, Self Care Clinical Impression: Coronavirus infection Instructions: ED Flu, Medication: Tamiflu (Oseltamivir) Prescriptions: Oseltamivir [Tamiflu] 75 mg PO BID #9 cap Comments: Thank you for trusting us with your care, we have evaluated you for Your confusion. I believe the episode of confusion and the hot temperature you felt yesterday was due to influenza A. We have completed labs as well as a head CT and all are unremarkable. We have started you on Tamiflu here in the emergency department, it is very important that going home you are drinking plenty of fluids to help with recovery from this virus While eating a healthy well- balanced diet. 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 Forms: PCP List Discharge Date/Time: 02/03/24 18:14
[2024-02-03 16:36] LABS: B. PARAPERTUSSIS- RESP PCR PAN NOT DETECTED; B. PERTUSSIS- RESP PCR PANEL NOT DETECTED; C. PNEUMONIAE- RESP PCR PANEL NOT DETECTED; CORONAVIRUS 229E-RESP PCR DETECTED; CORONAVIRUS HKU1-RESP PCR NOT DETECTED; CORONAVIRUS NL63-RESP PCR NOT DETECTED; CORONAVIRUS OC43-RESP PCR NOT DETECTED; HUMAN METAPNEUMOVIRUS NOT DETECTED; INFLUENZA A- RESP PCR PANEL NOT DETECTED; INFLUENZA B - RESP PCR PANEL NOT DETECTED; M. PNEUMONIAE- RESP PCR PANEL NOT DETECTED; PARAINFLUENZA VIRUS 1 NOT DETECTED; PARAINFLUENZA VIRUS 2 NOT DETECTED; PARAINFLUENZA VIRUS 3 NOT DETECTED; PARAINFLUENZA VIRUS 4 NOT DETECTED; RHINOVIRUS/ENTEROVIRUS NOT DETECTED; RSV- RESP PCR PANEL NOT DETECTED; SARS-CoV-2 -RESP PCR PANEL NOT DETECTED
[2024-02-03] MEDS: SODIUM CHLORIDE 0.9% 1,000 ML IV ONE (17:30)
[2024-02-03] MEDS: OSELTAMIVIR 75 MG CAPSULE PO STA (17:30)
[2024-02-03 18:16] VITALS: BP 146/75; O2SAT 100
== END 2024-02-03 18:14 | disposition home or self-care (01) ==
LOC: EDUNIT# → ED 14:56
DX: B34.2 Coronavirus infection, unspecified (principal)
CPT/HCPCS: 36415; 70450; 80053; 81001; 82962; 83690; 83735; 84443; 85025; 87633; 93005; 99284; A9270; 81003; 87086

== ENCOUNTER 2024-02-17 17:00 | Outpatient (CLI) | payer MEDICARE, OTHER ==
[2024-02-17 20:22] LABS: BASOPHILS % (AUTO) 0.3 %; EOSINOPHILS # (AUTO) 0.2 10^3/uL (0.0-0.7); EOSINOPHILS % (AUTO) 3.4 %; HGB - HEMOGLOBIN 15.3 g/dL (14.0-18.0); LYMPHOCYTES # (AUTO) 1.9 10^3/uL (1.5-3.5); MEAN CORPUSCULAR HEMOGLOBIN 32.4 pg (27.0-31.0); MEAN CORPUSCULAR HGB CONC 33.3 g/dL (32.0-36.0); MEAN CORPUSCULAR VOLUME 97.5 fL (80.0-94.0); MEAN PLATELET VOLUME 10.3 fL (7.4-11.4); MONOCYTES # (AUTO) 0.5 10^3/uL (0.0-1.0); MONOCYTES % (AUTO) 7.3 %; NEUTROPHILS # (AUTO) 3.6 10^3/uL (1.5-6.6); NEUTROPHILS % (AUTO) 58.7 %; PLT - PLATELET COUNT 197 10^3/uL (130-450); RED BLOOD COUNT 4.72 10^6/uL (4.70-6.10); RED CELL DISTRIBUTION WIDTH 12.3 % (12.0-15.0); WHITE BLOOD COUNT 6.2 x10^3/uL (4.8-10.8)
[2024-02-17 20:55] LABS: ALBUMIN 4.4 g/dL (3.2-5.5); ALBUMIN/GLOBULIN RATIO 1.5 (1.0-2.2); BILIRUBIN,TOTAL 0.5 mg/dL (0.2-1.0); CALCIUM 10.2 mg/dL (8.5-10.3); CREATININE 0.9 mg/dL (0.6-1.3); POTASSIUM 4.1 mmol/L (3.5-4.5); TOTAL PROTEIN 7.3 g/dL (6.4-8.9)
[2024-02-17 21:05] LABS: THYROID STIMULATING HORMONE 1.92 uIU/mL (0.34-5.60)
== END 2024-02-17 17:15 | disposition home or self-care (01) ==
LOC: LAB.N 17:00
PROVIDERS: ATTEND Registered Nurse
DX: R68.83 Chills (without fever) (principal); R41.0 Disorientation, unspecified; B34.9 Viral infection, unspecified
CPT/HCPCS: 36415; 80053; 84443; 85025

== ENCOUNTER 2024-05-27 10:40 | Outpatient (CLI) | payer MEDICARE, OTHER | END 2024-05-27 23:59 | disposition EMS.NT | LOC: EMS 10:40 | DX: G89.29 Other chronic pain (principal) ==

== ENCOUNTER 2024-07-11 16:15 | Emergency (ER) | payer MEDICARE, OTHER ==
--- NOTE | 2024-07-11 16:36 | ED Physician Documentation ---
PD HPI FOCAL NEURO - Stated complaint Stated Complaint: IMPAIRED SPEECH, CONFUSION - Chief complaint Chief Complaint: General - History obtained from History obtained from: Patient - Additional information Additional information: This is an 84-year-old gentleman with history of hypertension, PE, depression anxiety presents for the evaluation of confusion. He lives alone in [place] and starting this morning he had trouble having a bowel movement. That made him very anxious and ever since then he feels slow. He feels like he is hot and cold. There is no associated physical pain with this but he is very anxious. He has no focal neurologic symptoms. Review of Systems Constitutional: reports: Chills Throat: denies: Dental pain / toothache, Sore throat Cardiac: denies: Chest pain / pressure, Palpitations Respiratory: denies: Dyspnea, Cough PD PAST MEDICAL HISTORY - Past Medical History Past Medical History: Yes Cardiovascular: Hypertension, Pulmonary embolism Respiratory: None Neuro: None Endocrine/Autoimmune: None GI: GERD, Ulcers, Colon polyps : None HEENT: None Psych: Depression, Anxiety Musculoskeletal: Fatigue, Chronic back pain Derm: None - Past Surgical History Past Surgical History: Yes General: Colonoscopy Ortho: Other HEENT: Tonsil/Adenoidectomy - Present Medications Home Medications: Ambulatory Orders Medication Instructions Recorded Confirmed Apixaban [Eliquis] 2.5 mg PO BID 10/03/21 02/03/24 DULoxetine [Cymbalta] 30 mg PO DAILY 10/03/21 02/03/24 Duloxetine HCl [Cymbalta] 60 mg PO DAILY 10/03/21 02/03/24 traZODone [Desyrel] 150 mg PO HS 10/03/21 02/03/24 Atorvastatin [Lipitor] 20 mg PO QPM 02/03/24 02/03/24 Latanoprost 0.005% Ophth Drops 1 drops OPTH QPM 02/03/24 02/03/24 [Xalatan Ophth Drops] Methyltestosterone [Methitest] 10 mg PO DAILY 02/03/24 02/03/24 Mirtazapine [Remeron] 15 mg PO HS 02/03/24 02/03/24 Oseltamivir [Tamiflu] 75 mg PO BID #9 cap 02/03/24 - Allergies Allergies/Adverse Reactions: Allergies Allergy/AdvReac Type Severity Reaction Status Date / Time No Known Drug Allergies Allergy Verified 07/11/24 16:20 - Social History Does the pt smoke?: No Smoking Status: Never smoker Does the pt drink ETOH?: No Does the pt have substance abuse?: No - Immunizations Immunizations are current?: No - POLST Patient has POLST: No PD ED PE NORMAL - Vitals Vital signs reviewed: Yes - General General: Alert and oriented X 3, Other (He is anxious) - HEENT HEENT: PERRL, EOMI - Neck Neck: Supple, no meningeal sign, No bony TTP - Cardiac Cardiac: RRR, No murmur - Respiratory Respiratory: No respiratory distress, Clear bilaterally - Abdomen Abdomen: Normal bowel sounds, Soft, Non tender - Back Back: No CVA TTP, No spinal TTP - Derm Derm: Normal color, Warm and dry - Neuro Neuro: Alert and oriented X 3, surgical specialist 2-12 intact, No motor deficit, No sensory deficit, Normal speech Eye Opening: Spontaneous Motor: Obeys Commands Verbal: Oriented GCS Score: 15 - Psych Psych: Normal mood, Normal affect NIHSS - Time Time: 16:30 - Level of Consciousness Level of consciousness: (0) Alert, Keenly responsive LOC Questions: (0) Answers both Q's correct - Gaze Best Gaze: (0) Normal - Visual Visual: (0) No loss - Facial Palsy Facial Palsy: (0) Normal, symmetrical movement - Motor Arms (both separate) Motor Arm (right): (0) No drift Motor Arm (left): (0) No drift - Motor Legs (both separate) Motor Leg (right): (0) No drift Motor Leg (left): (0) No drift - Limb Ataxia Limb Ataxia: (0) Absent - Sensory Sensory: (0) Normal - Best Language Best Language: (0) No aphasia - Dysarthria Dysarthria: (0) Normal - Extinction and Inattention (formally neg Extinction and inattention: (0) No abnormality Results - Vitals Vitals: Vital Signs - 24 hr 07/11/24 07/11/24 16:20 17:05 Temperature 36.5 C Heart Rate 73 68 Respiratory 16 15 Rate Blood Pressure 155/85 H 144/87 H O2 Saturation 100 99 Oxygen O2 Source [] Nasal cannula O2 Source Room air - EKG (time done) 1658 EKG releavant findings:: EKG personally interpreted by author of this note. Relevant findings are: Rate: Rate (enter#) (74) Rhythm: Other (Ectopic atrial rhythm with PACs) [place]: LAD Intervals: Normal NE QRS: Normal Ischemia: Normal ST segments - Labs Labs: Laboratory Tests 07/11/24 07/11/24 07/11/24 16:42 16:42 16:42 WBC 6.3 RBC 4.30 L Hgb 14.0 Hct 41.7 L MCV 97.0 H MCH 32.6 H MCHC 33.6 RDW 13.1 Plt Count 142 MPV 9.9 Neut # (Auto) 4.1 Lymph # (Auto) 1.6 [place] # (Auto) 0.4 Eos # (Auto) 0.1 Baso # (Auto) 0.0 Absolute Nucleated RBC 0.00 Nucleated RBC % 0.0 VBG pH VBG pCO2 VBG pO2 VBG HCO3 VBG Total CO2 VBG O2 Saturation VBG Base Excess Sodium 141 Potassium 3.7 Chloride 107 Carbon Dioxide 26 Anion Gap 8.0 BUN 19 Creatinine 0.8 Estimated GFR (MDRD) 93 Glucose 92 Calcium 9.3 Total Bilirubin 0.7 AST 25 ALT 32 Alkaline Phosphatase 37 L Ammonia 17.1 L Total Protein 7.1 Albumin 4.5 Globulin 2.6 Albumin/Globulin Ratio 1.7 07/11/24 16:42 WBC RBC Hgb Hct MCV MCH MCHC RDW Plt Count MPV Neut # (Auto) Lymph # (Auto) [place] # (Auto) Eos # (Auto) Baso # (Auto) Absolute Nucleated RBC Nucleated RBC % VBG pH 7.449 H VBG pCO2 35.6 L VBG pO2 33.7 VBG HCO3 24.1 VBG Total CO2 25.2 VBG O2 Saturation 70.5 VBG Base Excess 0.6 Sodium Potassium Chloride Carbon Dioxide Anion Gap BUN Creatinine Estimated GFR (MDRD) Glucose Calcium Total Bilirubin AST ALT Alkaline Phosphatase Ammonia Total Protein Albumin Globulin Albumin/Globulin Ratio - Rads (name of study) CT Head-NAD Relevant Findings:: Final report received, EMP independent interpretation of test PD Medical Decision Making - ED course ED course: He presents with a complaint of confusion but really appears more anxious than anything and he is not actually obviously confused while taking a history. Has a nonfocal neurologic exam with an NIH stroke scale of 0. Review of the chart shows that he had a very similar presentation in January of this year, the H&P was almost exactly the same, and at that time he had a workup with labs and a head CT. He had a non-COVID coronavirus, the rest of his workup was negative/normal and was discharged without issue. After workup he was feeling much better without specific intervention and his symptoms had resolved. CBC, venous blood gas, CMP and ammonia levels were normal with the exception of a very mild respiratory alkalosis likely from anxiety. Departure - Departure Disposition: 01 Home, Self Care Clinical Impression: Sense of impending doom Condition: Stable Instructions: ED Stress React Comments: Testing today was all normal/negative with the exception of: During your workup here we did ascertain that you do have a slightly abnormal heart rhythm. That would not cause any of your current symptomatology but please mention it to your primary care physician with consideration for cardiology follow-up. I do want you to talk with your primary care physician about evaluation and treatment for possible anxiety. Return for new or worsening symptoms. Forms: PCP List
[2024-07-11 16:48] LABS: BASOPHILS % (AUTO) 0.3 %; EOSINOPHILS # (AUTO) 0.1 10^3/uL (0.0-0.7); EOSINOPHILS % (AUTO) 2.2 %; HCT - HEMATOCRIT 41.7 % (42.0-52.0); LYMPHOCYTES # (AUTO) 1.6 10^3/uL (1.5-3.5); LYMPHOCYTES % (AUTO) 24.9 %; MEAN CORPUSCULAR HEMOGLOBIN 32.6 pg (27.0-31.0); MEAN CORPUSCULAR HGB CONC 33.6 g/dL (32.0-36.0); MEAN PLATELET VOLUME 9.9 fL (7.4-11.4); MONOCYTES # (AUTO) 0.4 10^3/uL (0.0-1.0); MONOCYTES % (AUTO) 6.1 %; NEUTROPHILS # (AUTO) 4.1 10^3/uL (1.5-6.6); PLT - PLATELET COUNT 142 10^3/uL (130-450); RED CELL DISTRIBUTION WIDTH 13.1 % (12.0-15.0); WHITE BLOOD COUNT 6.3 x10^3/uL (4.8-10.8)
[2024-07-11 16:53] LABS: VBG BASE EXCESS 0.6 mmol/L (-2 - +2); VBG HCO3 24.1 mmol/L (23-28); VBG PCO2 35.6 mmHg (41-51); VBG PH 7.449 (7.31-7.41); VBG PO2 33.7 mmHg (25-47); VBG TOTAL CO2 25.2 mmol/L (24-29)
[2024-07-11 16:54] LABS: VBG OXYGEN SATURATION 70.5 % (60-80)
[2024-07-11 17:05] LABS: ALBUMIN 4.5 g/dL (3.2-5.5); ALBUMIN/GLOBULIN RATIO 1.7 (1.0-2.2); BILIRUBIN,TOTAL 0.7 mg/dL (0.2-1.0); CALCIUM 9.3 mg/dL (8.5-10.3); CREATININE 0.8 mg/dL (0.6-1.3); POTASSIUM 3.7 mmol/L (3.5-4.5); TOTAL PROTEIN 7.1 g/dL (6.4-8.9)
--- NOTE | 2024-07-11 17:36 | CT Report ---
PROCEDURE: Head WO INDICATIONS: confusion TECHNIQUE: Noncontrast 4.5 mm thick angled axial sections acquired from the foramen magnum to the vertex. For r adiation dose reduction, the following was used: automated exposure control, adjustment of mA and/or kV according to patient size. COMPARISON: 02/03/2024 FINDINGS: Image quality: Excellent. CSF spaces: Basal cisterns are patent. No extra-axial fluid collections. Ventricles are normal in size and shape. Brain: No midline shift. No intracranial masses or hemorrhage. Ray-white matter interface is norm al. Skull and face: Calvarium and visualized facial bones are intact, without suspicious lesions. Sinuses: Prior sinus surgery. Thickening of the ethmoid mucosa. Small mucocele in the left maxillary sinus. Small right mastoid effusion. IMPRESSION: No CT evidence of acute intracranial process. Chronic appearing sinus disease, improved, and decreased size of right mastoid effusion. Reviewed by: Kareen Rankin MD on 07/11/2024 5:34 PM PDT Approved by: Kareen Rankin MD on 07/11/2024 5:34 PM PDT Station ID: [id number]
[2024-07-11 18:15] VITALS: BP 134/76; O2SAT 98
== END 2024-07-11 18:13 | disposition home or self-care (01) ==
LOC: ED 16:15
DX: R45.82 Worries (principal)
CPT/HCPCS: 36415; 80053; 82140; 82803; 85025; 93005; 99283; 99284